=== PATIENT | male | born 1945 | race Caucasian/White ===

== ENCOUNTER 2019-03-14 04:41 | Inpatient (IN) ==
[2019-03-08 15:54] LABS: Appearance,Urine CLEAR; Bacteria,Urine 0 /hpf (0); Bilirubin,Urine NEG (NEG); Color,Urine YELLOW; Glucose,Urine (UA) NEGATIVE (NEG); Leukocyte Esterase,Urine NEG /uL (NEG); Mucus,Urine FEW /hpf (0); Protein,Urine NEG (NEG); Specific Gravity,Urine 1.013 (1.000-1.035); Urine Blood 0.03 mg/dL (<0.03); Urine RBC < 1 /hpf (0-1); Urine Squamous Epithelial Cell 0 /hpf (0-4); Urine WBC 2 /hpf (0-4); Urobilinogen,Urine NEG (NEG)
[2019-03-08 16:26] LABS: Basophils # (Auto) 0 K/mcL (0.0-0.3); Basophils % (Auto) 0.2 % (0.0-2.0); Eosinophils # (Auto) 0.4 K/mcL (0.0-0.7); Granulocytes % (Auto) 49.3 % (38.0-78.0); Lymphocytes # (Auto) 3.7 K/mcL (1.5-4.8); Lymphocytes % (Auto) 34.2 % (15.5-49.0); Mean Cell Volume 88.5 fL (80.0-100.0); Mean Corpuscular HGB Conc 31.6 g/dL (31.0-36.0); Monocytes # (Auto) 1.3 K/mcL (0.1-0.9); Monocytes % (Auto) 12.3 % (1.0-12.0); Platelet Count 237 K/mcL (140-440); RBC 4.96 M/mcL (4.50-5.90); Red Cell Distribution Width 19.3 % (11.5-14.5)
[2019-03-08 16:37] LABS: Blood Urea Nitrogen 15 mg/dl (8-23)
[2019-03-08 17:22] LABS: Estimated Average Glucose(eAG) 137 mg/dL; Hemoglobin A1C 6.4 % HGB (4.0-6.0)
[2019-03-14] MEDS ORDERED: GENTAMICIN SULFATE 800 MG/20 ML VIAL IR ONE (06:43)
[2019-03-14] MEDS ORDERED: ceFAZolin 2 GM in DEXTROSE 5% IN WATER 50 ML IV SCH (07:00)
[2019-03-14] MEDS ORDERED: oxyCODONE 10 MG TAB.ER.12H PO SCH (07:00)
[2019-03-14] MEDS ORDERED: PREGABALIN 150 MG CAPSULE PO SCH (07:00)
[2019-03-14] MEDS ORDERED: ACETAMINOPHEN 500 MG TABLET PO SCH (07:00)
[2019-03-14] MEDS ORDERED: 0.9 % SODIUM CHLORIDE 9 ML, KETOROLAC 30 MG, ROPIVACAINE HCL/PF 49.5 ML, EPINEPHrine 0.... IJ SCH (07:00)
[2019-03-14] MEDS ORDERED: CELECOXIB 200 MG CAPSULE PO SCH (07:00)
--- NOTE | 2019-03-14 08:46 | XRay Report ---
CLINICAL INFORMATION: right total hip arthroplasty COMPARISON: None. FINDINGS: Single AP view of the pelvis in the OR shows right femoral stem template and right prosthetic acetabulum are anatomically aligned. Moderate degeneration on the left hip. IMPRESSION: Anatomic alignment femoral stem template and prosthetic right acetabulum Interpreted and Authenticated by: Seb Jacobson 03/14/19
[2019-03-14] MEDS ORDERED: HYDROmorphone 2 MG/ML VIAL IV PRN (09:09)
[2019-03-14] MEDS ORDERED: TRANEXAMIC ACID 1,000 MG/10 ML VIAL IV ONE (09:09)
[2019-03-14] MEDS ORDERED: BENZOCAINE/MENTHOL 1 LOZENGE PO PRN ×2 (09:09→09:16)
[2019-03-14] MEDS ORDERED: MAGNESIUM HYDROXIDE 30 ML ORAL.SUSP PO PRN (09:09)
[2019-03-14] MEDS ORDERED: POLYETHYLENE GLYCOL 3350 17 GM PACKET PO PRN (09:09)
[2019-03-14] MEDS ORDERED: TEMAZEPAM 15 MG CAPSULE PO PRN (09:09)
[2019-03-14] MEDS ORDERED: ONDANSETRON 4 MG/2 ML VIAL IV PRN ×2 (09:09→09:16)
[2019-03-14] MEDS ORDERED: BISACODYL 10 MG SUPP.RECT PR PRN (09:09)
[2019-03-14] MEDS ORDERED: ACETAMINOPHEN 325 MG TABLET PO PRN (09:09)
[2019-03-14] MEDS ORDERED: FLEETS ADULT ENEMA PR PRN (09:09)
--- NOTE | 2019-03-14 09:09 | Brief Operative Note ---
Date of procedure: 03/14/19 Pre-op diagnosis: Right hip djd severe Post-op diagnosis: same Procedure: Right LALA Grafts/Implants: Yes Anesthesia: GETA Complications: none Surgeon: Landon Michelle Educational Aide: Jerry Saenz Estimated blood loss (cc): 300 Specimens Removed/Pathology: none sent Condition: stable Disposition: PACU
[2019-03-14] MEDS ORDERED: HYDROcodone/APAP 10/325MG TABLET PO PRN (09:11)
[2019-03-14] MEDS ORDERED: MELATONIN 3 MG TABLET PO PRN (09:11)
[2019-03-14] MEDS ORDERED: DEXTROSE 5%-1/2NS 1,000 ML IV SCH (09:15)
[2019-03-14] MEDS ORDERED: TESTOSTERONE CYPIONATE 200 MG/ML IM SCH (09:15)
[2019-03-14] MEDS ORDERED: PROMETHAZINE 25 MG/ML VIAL IM PRN (09:16)
[2019-03-14] MEDS ORDERED: IPRATROPIUM/ALBUTEROL 3 ML AMPUL.NEB NEB PRN (09:16)
[2019-03-14] MEDS ORDERED: FLUMAZENIL 0.1 MG/ML ML IV PRN (09:16)
[2019-03-14] MEDS ORDERED: NALOXONE HCL 0.4 MG/ML VIAL IV PRN (09:16)
[2019-03-14] MEDS ORDERED: ACETAMINOPHEN 1,000 MG/100 ML BOTTLE IV ONE (09:16)
[2019-03-14] MEDS ORDERED: PROMETHAZINE 25 MG/ML VIAL IV PRN (09:16)
[2019-03-14] MEDS ORDERED: MEPERIDINE 50 MG/ML INJECTION IM PRN (09:16)
[2019-03-14] MEDS ORDERED: MEPERIDINE 25 MG/ML SYRINGE IV PRN (09:16)
[2019-03-14] MEDS ORDERED: METHOCARBAMOL 1,000 MG/10 ML VIAL IV PRN (09:16)
[2019-03-14] MEDS ORDERED: LACTATED RINGERS 250 ML IV PRN (09:16)
[2019-03-14] MEDS ORDERED: LACTATED RINGERS 1,000 ML IV SCH (09:30)
--- NOTE | 2019-03-14 09:44 | XRay Report ---
CLINICAL INFORMATION: Post-op Total Hip COMPARISON: None. FINDINGS: Right total hip prosthesis is in anatomic alignment. Moderate degenerative changes noted in the left hip. No osseous abnormality. Soft tissues normal. IMPRESSION: Right hip prosthesis in anatomic alignment Interpreted and Authenticated by: Seb Jacobson 03/14/19
--- NOTE | 2019-03-14 09:53 | Operative Note ---
DATE OF OPERATION: 03/14/2019 PREOPERATIVE DIAGNOSIS: Right hip degenerative arthritis, severe. POSTOPERATIVE DIAGNOSIS: Right hip degenerative arthritis, severe. PROCEDURE: Right total hip arthroplasty. SURGEON: Landon Michelle M.D. DOOR TO DOOR SELLING DISTRIBUTOR: Jerry Saenz PA-C. ANESTHESIA: General LMA anesthesia. COMPLICATIONS: None. DESCRIPTION OF PROCEDURE: The patient was brought to the operating room and put to sleep with general LMA anesthesia. Once asleep, the patient had the right hip sterilely prepped and draped. A timeout was performed. The patient then had a superior approach performed. Once exposed, we dislocated the hip and made the neck cut at 32 mm from the center of hip rotation. Once done, we then removed the ball. We removed the labrum and reamed up to the size 54. A 54 cup in 20 degrees of anteversion and 40 degrees of inclination was placed with a 35 mm screw. A hooded liner was placed inferiorly. We then prepared the femur. The femur was then broached up to a size 4. This seemed to fit very nicely, equal leg lengths with a 5+ neck length. Once done, we then tapped into place a size 4 cementless stem with a +5 ceramic 36 mm head and neck, which was reduced very stable up to 80 degrees of rotation with the hip flexed. The patient tolerated this well. We irrigated. We took the hip through range of motion. Leg lengths equal. We irrigated, closed the capsule with #2 Ethibond. The fascial layer was closed with #1 Stratafix and adhesive closure on the skin. Sterile bandage applied. RBH:enrique Job ID: [id number] Doc ID: [id number] Landon Michelle MD
[2019-03-14] MEDS: fentaNYL 100 MCG/2 ML VIAL IV PRN ×4 (10:05→10:19)
[2019-03-14] MEDS: 0.45 % SODIUM CHLORIDE 1,000 ML IV SCH ×2 (10:39→20:18)
[2019-03-14] MEDS: KETOROLAC 15 MG/ML VIAL IV PRN ×2 (10:57→17:39)
[2019-03-14] MEDS: 0.9 % SODIUM CHLORIDE 10 ML SYRINGE IV SCH ×3 (13:14→23:53)
[2019-03-14] MEDS: HYDROcodone/APAP 10/325MG TABLET PO PRN (13:58)
[2019-03-14] MEDS: ceFAZolin 1 GM VIAL IV SCH ×2 (14:49→23:52)
[2019-03-14] MEDS: METHADONE 5 MG TABLET PO SCH ×2 (14:49→20:13)
[2019-03-14] MEDS: metFORMIN 500 MG TAB.XL.24H PO SCH (17:39)
[2019-03-14] MEDS: BACLOFEN 10 MG TABLET PO SCH (20:12)
[2019-03-14] MEDS: APIXABAN 5 MG TABLET PO SCH (20:12)
[2019-03-14] MEDS: PREGABALIN 150 MG CAPSULE PO SCH (20:13)
[2019-03-14] MEDS: DOCUSATE SODIUM 100 MG CAPSULE PO SCH (20:13)
[2019-03-14] MEDS: cloNIDine HCL 0.1 MG TABLET PO SCH (20:13)
[2019-03-14] MEDS: SENNOSIDES 1 TABLET PO SCH (20:16)
[2019-03-14] MEDS: SAW PALMETTO 160 MG PO SCH (20:16)
[2019-03-14] MEDS: Lubiprostone [Amitiza] 24 mcg Cap PO SCH (20:16)
[2019-03-14] MEDS ORDERED: ASPIRIN 325 MG ENTERIC COATED TABLET PO SCH (21:00)
[2019-03-15] MEDS: 0.9 % SODIUM CHLORIDE 10 ML SYRINGE IV SCH ×3 (05:25→21:16)
[2019-03-15] MEDS: HYDROcodone/APAP 10/325MG TABLET PO PRN ×3 (05:32→23:55)
[2019-03-15] MEDS ORDERED: LEVOTHYROXINE 50 MCG TABLET PO SCH (07:30)
--- NOTE | 2019-03-15 07:39 | Orthopedic Progress Note ---
Subjective Patient information: Note initiated : 03/15/19 at 7:38 am Service Date, if different from initiated Date: [] Patient: Siddharth Painter 73 y/o M admitted on 03/14/19 for Right Total Hip Arthroplasty. Chief Complaint: [Pt is stable this morning on post operative day 1 without any significant concerns or complaints. Patients vital signs have remained stable. Patients dressing is dry and is grossly intact from a neurovascular and motor standpoint. Patients 10 point ROS is otherwise negative. ] Objective Vital signs: Vital Signs Temp Pulse Resp BP BP Pulse Ox 03/15/19 04:05 97.5 F 62 16 117/47 94 03/14/19 23:57 95 03/14/19 23:49 98.3 F 69 16 126/51 93 03/14/19 19:12 98.8 F 71 16 129/57 90 03/14/19 16:53 91 03/14/19 13:51 95 03/14/19 13:30 63 127/60 89 L 03/14/19 13:15 92 03/14/19 12:33 56 L 123/62 97 03/14/19 12:02 56 L 10 L 128/59 91 03/14/19 11:30 55 L 8 L 120/61 98 03/14/19 11:29 86 L 03/14/19 11:17 96 03/14/19 11:16 95 03/14/19 11:15 53 L 122/63 94 03/14/19 11:08 92 03/14/19 11:01 58 L 12 125/57 94 03/14/19 11:00 95 03/14/19 10:45 59 L 126/63 94 03/14/19 10:30 97.6 F 58 L 12 97/47 94 03/14/19 10:25 98.1 F 61 13 129/49 93 03/14/19 10:10 97.5 F 59 L 15 136/50 93 03/14/19 09:55 97.5 F 77 12 166/64 93 03/14/19 09:40 97.2 F 75 12 157/72 93 03/14/19 09:25 97.1 F 16 L 11 L 151/65 94 03/14/19 09:20 75 11 L 138/54 92 03/14/19 09:15 74 11 L 134/54 94 03/14/19 09:10 97.0 F 80 12 154/67 94 Intake and Output 03/14/19 03/15/19 03/15/19 21:59 05:59 13:59 Intake Total 1907 250 Output Total 875 1300 Balance 1032 -1050 Intake: IV 967 Sodium Chloride 0.45% 1,000 ml 967 @ 100 mls/hr IV .Q10H TIANA Rx#: [id number] Oral 940 250 Output: Void Amount 875 1300 Other: Meal Dinner Percent of Meal Consumed 100% Urine Appearance Clear Clear Urine Color Dark Yellow Bright Yellow Urine Odor Strong Weight 253 lb Intake & Output: Intake & Output 03/14/19 03/15/19 03/15/19 21:59 05:59 13:59 Intake Total 1907 250 Output Total 875 1300 Balance 1032 -1050 Weight 253 lb Intake: IV 967 Sodium Chloride 0.45% 1,000 ml 967 @ 100 mls/hr IV .Q10H TIANA Rx#: [id number] Oral 940 250 Output: Void Amount 875 1300 Other: Meal Dinner Percent of Meal Consumed 100% Urine Appearance Clear Clear Urine Color Dark Yellow Bright Yellow Urine Odor Strong Incision: Yes healing Incision clean and dry: Yes Dressing: Yes clean Weight bearing status: full Neurological exam IM: Yes motor sensory intact, Yes neurovascular intact Extremities exam IM: Yes Foot pink and warm, Yes neurovascular intact - Labs CBC & BMP: 03/15/19 04:12 03/08/19 14:07 Labs: Orthopedic Labs 03/08/19 14:07 PT 12.8 INR 1.0 APTT 34 03/15/19 03/08/19 04:12 14:07 Hgb 13.9 Hct 35.2 L 43.9 Assessment and Plan (1) Hx of total hip arthroplasty The patient has been educated regarding dressing care, Physical Therapy recomme ndations, home exercises, restrictions, and follow up appointments. The patient has had all necessary DME prescribed. The patient has remained relatively stable during their hospital course. Status: Acute
[2019-03-15] MEDS: OMEPRAZOLE 20 MG CAPSULE PO SCH (07:42)
[2019-03-15] MEDS: KETOROLAC 15 MG/ML VIAL IV PRN ×2 (07:42→13:58)
[2019-03-15] MEDS: metFORMIN 500 MG TAB.XL.24H PO SCH ×2 (07:42→17:03)
--- NOTE | 2019-03-15 07:42 | Discharge Summary ---
Ortho Discharge - LALA - Patient Instructions Diet: Regular Diet Activity: activity as tolerated, weight bearing as tolerated Total Hip Protocol: Follow activity instructions as provided by Physical Therapy. Dressing Care: May shower in 2 days Patient Education: Total Hip Replacement (DC) - Problem Maintenance (1) Hx of total hip arthroplasty Status: Acute - Follow Up Plan Follow Up Appointments: Jerry Saenz PA-C [Physician Team Leader Surgery] - 03/29/19 10:10 am Disposition: Home, Self-Care Prognosis: Good Rehab Potential: Good I certify that the patient requires SNF services: No Overall status at discharge: patient is progressing back to baseline - Orders For Discharge Prescriptions: Docusate Sodium [Colace] 100 mg PO BID #60 cap HYDROcodone/APAP 10/325MG [[place] 10-325Mg] 1 - 2 tab PO Q4HP PRN #75 tab PRN Reason: Pain Level 3-6
[2019-03-15] MEDS: LEVOTHYROXINE 88 MCG TABLET PO SCH (08:04)
[2019-03-15] MEDS: METHADONE 5 MG TABLET PO SCH ×3 (08:54→21:14)
[2019-03-15] MEDS: VITAMIN B COMPLEX 1 CAPSULE PO SCH (08:54)
[2019-03-15] MEDS: OLMESARTAN MEDOXOMIL 20 MG TABLET PO SCH (08:54)
[2019-03-15] MEDS: PREGABALIN 150 MG CAPSULE PO SCH ×2 (08:54→21:14)
[2019-03-15] MEDS: cloNIDine HCL 0.1 MG TABLET PO SCH ×2 (08:54→23:52)
[2019-03-15] MEDS: FISH OIL 1,000 MG CAPSULE PO SCH (08:54)
[2019-03-15] MEDS: amLODIPine 10 MG TABLET PO SCH (08:54)
[2019-03-15] MEDS: VITAMIN D3 5,000 UNIT CAPSULE PO SCH (08:54)
[2019-03-15] MEDS: DOCUSATE SODIUM 100 MG CAPSULE PO SCH ×2 (08:55→21:14)
[2019-03-15] MEDS: DULoxetine 30 MG CAPSULE PO SCH (08:55)
[2019-03-15] MEDS: APIXABAN 5 MG TABLET PO SCH ×2 (08:55→21:14)
[2019-03-15] MEDS: MAGNESIUM OXIDE 400 MG TABLET PO SCH (08:55)
[2019-03-15] MEDS: SAW PALMETTO 160 MG PO SCH ×2 (09:09→21:16)
[2019-03-15] MEDS: Lubiprostone [Amitiza] 24 mcg Cap PO SCH ×2 (09:09→21:16)
[2019-03-15] MEDS ORDERED: DEXAMETHASONE 10 MG/ML VIAL IV ONE (12:59)
[2019-03-15] MEDS ORDERED: LIDOCAINE HCL/PF 100 MG/5 ML SYRINGE IV ONE (12:59)
[2019-03-15] MEDS ORDERED: PROPOFOL 200 MG/20 ML VIAL IV ONE (12:59)
[2019-03-15] MEDS ORDERED: TRANEXAMIC ACID 1,000 MG/10 ML VIAL IV ONE (12:59)
[2019-03-15] MEDS ORDERED: SUCCINYLCHOLINE 20 MG/ML ML IV ONE (12:59)
[2019-03-15] MEDS ORDERED: GLYCOPYRROLATE 0.2 MG/ML VIAL IV ONE (12:59)
[2019-03-15] MEDS ORDERED: PHENYLEPHRINE 10 MG/ML VIAL IV ONE (12:59)
[2019-03-15] MEDS ORDERED: ONDANSETRON 4 MG/2 ML VIAL IV ONE (12:59)
[2019-03-15] MEDS: BACLOFEN 10 MG TABLET PO SCH (21:14)
[2019-03-15] MEDS: SENNOSIDES 1 TABLET PO SCH (21:15)
[2019-03-16] MEDS: 0.9 % SODIUM CHLORIDE 10 ML SYRINGE IV SCH (05:15)
[2019-03-16] MEDS: HYDROcodone/APAP 10/325MG TABLET PO PRN (07:08)
[2019-03-16] MEDS: LEVOTHYROXINE 88 MCG TABLET PO SCH (07:40)
[2019-03-16] MEDS: OMEPRAZOLE 20 MG CAPSULE PO SCH (07:40)
[2019-03-16] MEDS: metFORMIN 500 MG TAB.XL.24H PO SCH (07:46)
[2019-03-16] MEDS: VITAMIN B COMPLEX 1 CAPSULE PO SCH (08:27)
[2019-03-16] MEDS: DOCUSATE SODIUM 100 MG CAPSULE PO SCH (08:28)
[2019-03-16] MEDS: VITAMIN D3 5,000 UNIT CAPSULE PO SCH (08:28)
[2019-03-16] MEDS: METHADONE 5 MG TABLET PO SCH ×2 (08:29→14:52)
[2019-03-16] MEDS: OLMESARTAN MEDOXOMIL 20 MG TABLET PO SCH (08:32)
[2019-03-16] MEDS: cloNIDine HCL 0.1 MG TABLET PO SCH (08:33)
[2019-03-16] MEDS: MAGNESIUM OXIDE 400 MG TABLET PO SCH (08:33)
[2019-03-16] MEDS: FISH OIL 1,000 MG CAPSULE PO SCH (08:34)
[2019-03-16] MEDS: APIXABAN 5 MG TABLET PO SCH (08:34)
[2019-03-16] MEDS: DULoxetine 30 MG CAPSULE PO SCH (08:35)
[2019-03-16] MEDS: PREGABALIN 150 MG CAPSULE PO SCH (08:37)
[2019-03-16] MEDS: amLODIPine 10 MG TABLET PO SCH (08:37)
[2019-03-16] MEDS: KETOROLAC 15 MG/ML VIAL IV PRN (08:59)
[2019-03-16] MEDS: Lubiprostone [Amitiza] 24 mcg Cap PO SCH (09:29)
[2019-03-16] MEDS: SAW PALMETTO 160 MG PO SCH (09:29)
== END 2019-03-16 16:15 | DRG 470 ==
LOC: MEDSUR 04:41
PROVIDERS: ADMIT Orthopaedic Surgery; ATTEND Orthopaedic Surgery

== ENCOUNTER 2020-05-18 00:07 | Inpatient (IN) ==
[2020-05-18] MEDS ORDERED: HYDROmorphone 0.5 MG/0.5 ML SYRINGE IV PRN (00:51)
[2020-05-18 01:17] LABS: Basophils # (Auto) 0.04 K/mcL (0.00-0.30); Basophils % (Auto) 0.3 % (0.0-2.0); Eosinophils # (Auto) 0.31 K/mcL (0.00-0.70); Eosinophils % (Auto) 2.1 % (0.0-7.0); Granulocytes % (Auto) 72.1 % (38.0-78.0); Hematocrit 37.9 % (40.1-51.0); Hemoglobin 12.1 g/dL (13.7-17.5); Lymphocytes # (Auto) 1.81 K/mcL (1.50-4.80); Lymphocytes % (Auto) 12.3 % (15.5-49.0); Mean Cell Volume 76.6 fL (80.0-100.0); Mean Corpuscular HGB Conc 31.9 g/dL (31.0-36.0); Mean Platelet Volume 10.7 fL (7.4-10.4); Monocytes # (Auto) 1.95 K/mcL (0.10-0.90); Monocytes % (Auto) 13.2 % (1.0-12.0); Platelet Count 192 K/mcL (140-440); RBC 4.95 M/mcL (4.63-6.08); Red Cell Distribution Width 19.6 % (11.5-14.5); WBC 14.7 K/mcL (4.50-11.00)
[2020-05-18 01:56] LABS: ALT/SGPT 29 U/l (0-40); AST/SGOT 47 U/l (0-37); Albumin 3.5 gm/dL (3.2-5.2); Albumin/Globulin Ratio 0.9 (1.0-2.3); Alkaline Phosphatase 93 U/L (39-117); Bilirubin,Total 0.8 mg/dL (0.0-1.0); Blood Urea Nitrogen 37 mg/dl (8-23); Calcium 9.4 mg/dl (8.6-10.4); Carbon Dioxide 20 mmol/L (22-30); Chloride 102 mmol/L (96-108); Globulin 3.7 gm/dL (2.2-3.7); Glomerular Filtration Rate 34; Glucose 111 mg/dL (70-105)
[2020-05-18] MEDS ORDERED: CALCIUM CHLORIDE 1,000 MG/10 ML SYRINGE IV ONE ×2 (02:04→06:42)
[2020-05-18] MEDS ORDERED: FUROSEMIDE 40 MG/4 ML VIAL IV ONE ×2 (02:05→06:42)
[2020-05-18] MEDS ORDERED: SODIUM POLYSTYRENE SULFONATE 15 GM/60 ML SUSPENSION ONE (02:06)
[2020-05-18] MEDS ORDERED: ONDANSETRON 4 MG/2 ML VIAL ONE (02:23)
--- NOTE | 2020-05-18 06:40 | Cat Scan Report ---
INDICATION: weakness COMPARISON: Most recent previous MRI scan dated 10/23/2014. TECHNIQUE: Axial noncontrast-enhanced images through the brain. Sagittally and coronally reformatted images. FINDINGS: Examination was initially interpreted by [facility] Cerebral hemispheres:No intra-axial hemorrhage. Encephalomalacia in the right parietal lobe and right frontal lobe consistent with nonacute infarction. No new attenuation abnormality or localized mass effect. No midline shift. There is right lateral ventricular enlargement which is an ex vacuo effect. Brainstem and cerebellum:No intra-axial abnormality Extra-axial:No acute hemorrhage. No subdural or epidural hematoma. No subarachnoid hemorrhage. Basilar cisterns are normal Calvarial:No calvarial fracture. No lytic lesion Temporal bones are negative. No destructive lesions Soft tissue:Orbits and visualized facial soft tissues are grossly normal. IMPRESSION: 1. No acute intracranial hemorrhage. No acute abnormality 2. 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 Interpreted and Authenticated by: Seb Younger 05/18/20
[2020-05-18] MEDS ORDERED: 0.9 % SODIUM CHLORIDE 1,000 ML IV ONE (06:42)
[2020-05-18] MEDS ORDERED: ONDANSETRON 4 MG/2 ML VIAL IV ONE (06:42)
[2020-05-18] MEDS ORDERED: SODIUM POLYSTYRENE SULFONATE 15 GM/60 ML SUSPENSION PO ONE (06:42)
--- NOTE | 2020-05-18 06:52 | XRay Report ---
INDICATION: weakness TECHNIQUE: AP portable semiupright chest x-ray COMPARISON: Previous chest x-rays dated 07/06/2019 and 03/08/2019 FINDINGS: Lungs:Lungs are negative. No focal pulmonary parenchymal infiltrate or mass Heart, vascular:No significant cardiomegaly. Pulmonary vascularity is normal. No pulmonary edema or pulmonary congestion Mediastinum, alina:No mediastinal widening. No hilar mass Pleura:No pleural fluid. No pleural-based mass or calcification Skeletal:No acute right rib fracture or fractures. No acute abnormality IMPRESSION: Negative AP chest x-ray Interpreted and Authenticated by: Seb Younger 05/18/20
--- NOTE | 2020-05-18 07:10 | Cat Scan Report ---
INDICATION: abd pain COMPARISON: Abdominal CT scan dated 03/30/2020 TECHNIQUE: Axial images were obtained through the abdomen and pelvis. Sagittally and coronally reformatted images. FINDINGS: The examination was initially interpreted by [facility] Lung bases:No pulmonary parenchymal density. No calcified or noncalcified nodule. No pleural or pericardial effusion Liver: 8 mm low density lesion high in the right lobe of the liver. This is unchanged and nonspecific. Liver is otherwise negative to the limits of noncontrast enhanced examination. Liver contour is smooth without evidence for cirrhosis Gallbladder, bilary:No calcified gallstones. No gallbladder wall thickening. No pericholecystic fluid. No dilated bile ducts Spleen:No splenomegaly Pancreas:No pancreatic mass. No peripancreatic abnormality Adrenal glands:Negative Kidneys, ureters, bladder:No obstructing or nonobstructing renal calculi. No hydronephrosis. No renal mass No hydroureter. No ureteral stone No bladder calculus Gastrointestinal:No significant diverticulosis or evidence for diverticulitis. No detectable colonic mass No mechanical small bowel obstruction. No small bowel dilatation. Appendix: The appendix is normal Vascular:There is calcification of the abdominal aorta. Common iliac arteries are calcified. There is calcified plaque at the origins of the celiac trunk and superior mesenteric artery. Lymphatic:No retroperitoneal adenopathy. No significant mesenteric adenopathy. Mesentery, peritoneum:Trace perihepatic fluid consistent with ascites. This is decreased since 03/30/2020. No intra-abdominal abscess. There is thickening of the fascial planes in the retroperitoneum. No well-defined discrete mass. Reproductive:No significant prostatic enlargement Musculoskeletal:No lumbar compression fractures. No lytic lesions. Sacrum, pelvis, hips are negative. No anterior abdominal wall or inguinal hernia IMPRESSION: 1. Trace ascites, decreased since 03/30/2020 2. Atherosclerotic calcification. No abdominal aortic aneurysm 3. Nonspecific thickening of fascial planes in the retroperitoneum. No focal intra-abdominal abscess. The exam was performed using radiation dose optimization techniques including, but not limited to, automated exposure control, adjustment of the mA and/or kV according to patient size and use of iterative reconstruction technique. Interpreted and Authenticated by: Seb Younger 05/18/20
[2020-05-18] MEDS ORDERED: LACTULOSE 20 GM/30 ML ORAL.SOL PO PRN (07:56)
[2020-05-18] MEDS ORDERED: SENNOSIDES 1 TABLET PO PRN (07:56)
[2020-05-18] MEDS ORDERED: ONDANSETRON 4 MG/2 ML VIAL IV PRN (07:56)
[2020-05-18] MEDS ORDERED: ONDANSETRON 4 MG ODT TABLET SL PRN (08:00)
[2020-05-18] MEDS ORDERED: MELATONIN 3 MG TABLET PO PRN (08:00)
[2020-05-18] MEDS ORDERED: ACETAMINOPHEN 325 MG TABLET PO PRN (08:00)
[2020-05-18] MEDS ORDERED: OMEPRAZOLE 20 MG CAPSULE PO PRN (08:05)
[2020-05-18] MEDS ORDERED: DOCUSATE SODIUM 100 MG CAPSULE PO SCH (09:00)
[2020-05-18 09:54] LABS: Chloride 105 mmol/L (96-108)
[2020-05-18 10:04] LABS: Basophils # (Auto) 0.04 K/mcL (0.00-0.30); Basophils % (Auto) 0.3 % (0.0-2.0); Eosinophils # (Auto) 0.58 K/mcL (0.00-0.70); Granulocytes % (Auto) 64.1 % (38.0-78.0); Hematocrit 39.3 % (40.1-51.0); Hemoglobin 12.1 g/dL (13.7-17.5); Lymphocytes # (Auto) 2.82 K/mcL (1.50-4.80); Lymphocytes % (Auto) 19.3 % (15.5-49.0); Mean Cell Volume 78.6 fL (80.0-100.0); Mean Corpuscular HGB Conc 30.8 g/dL (31.0-36.0); Mean Platelet Volume 10.7 fL (7.4-10.4); Monocytes % (Auto) 12.3 % (1.0-12.0); Platelet Count 193 K/mcL (140-440); Red Cell Distribution Width 20.1 % (11.5-14.5); WBC 14.6 K/mcL (4.50-11.00)
[2020-05-18 10:09] LABS: ALT/SGPT 29 U/l (0-40); AST/SGOT 49 U/l (0-37); Albumin 3.4 gm/dL (3.2-5.2); Albumin/Globulin Ratio 0.9 (1.0-2.3); Alkaline Phosphatase 94 U/L (39-117); Bilirubin,Total 0.8 mg/dL (0.0-1.0); Blood Urea Nitrogen 35 mg/dl (8-23); Carbon Dioxide 17 mmol/L (22-30); Globulin 3.7 gm/dL (2.2-3.7); Glomerular Filtration Rate 45; Glucose 120 mg/dL (70-105)
[2020-05-18] MEDS: 0.9 % SODIUM CHLORIDE 1,000 ML IV SCH (10:25)
[2020-05-18] MEDS: oxyCODONE HCL 5 MG TABLET PO PRN ×2 (10:26→18:32)
[2020-05-18] MEDS: MULTIVIT,THER IRON,CA,FA & MIN 1 TABLET PO SCH (10:26)
[2020-05-18] MEDS: RIFAXIMIN 550 MG TABLET PO SCH ×2 (10:26→20:56)
[2020-05-18] MEDS: THIAMINE 100 MG TABLET PO SCH (10:26)
[2020-05-18] MEDS: APIXABAN 5 MG TABLET PO SCH ×2 (10:26→20:56)
[2020-05-18] MEDS: CYANOCOBALAMIN (VITAMIN B-12) 500 MCG TABLET PO SCH ×2 (10:26→20:56)
[2020-05-18] MEDS: sitaGLIPtin 50 MG TABLET PO SCH (10:26)
[2020-05-18] MEDS: MAGNESIUM OXIDE 400 MG TABLET PO SCH (10:26)
[2020-05-18] MEDS: cloNIDine HCL 0.1 MG TABLET PO SCH ×2 (10:26→20:55)
[2020-05-18] MEDS: PREGABALIN 150 MG CAPSULE PO SCH ×2 (10:26→20:56)
[2020-05-18] MEDS: FINASTERIDE 5 MG TABLET PO SCH (10:27)
[2020-05-18] MEDS: DOCUSATE SODIUM 100 MG CAPSULE PO SCH (10:27)
--- NOTE | 2020-05-18 11:36 | Emergency Department Note ---
Weakness HPI General Chief complaint: Weakness Stated complaint: weakness Time Seen by Provider: 05/18/20 00:17 Source: patient, family and EMS Mode of arrival: EMS Limitations: no limitations History of Present Illness HPI Narrative: 74-year-old male is brought in by EMS for weakness all day. He was recently seen by gastroenterology, Tania Glover nurse practitioner.He was being worked up for liver failure and was found to have a significantly elevated ammonia level and so was started on lactulose. He took 2 doses and was essentially having diarrhea all day with worsening condition. He got so weak that he could not get out of bed- Indeed he had been getting weaker for the last 5 days, Likely with increased ammonia levels but today's episode was an acute decline. He had trouble thinking straight and was very slow to speak. No fever nausea vomiting or other illness. He is able to urinate. On review of the chart it does look like he has had a recent pulmonary function tests and he is requiring oxygen here but has not in the past- EMS had him on 3 L nasal cannula. He is a current smoker. Temperature here is 99.3 elevated but not a true fever. His notes that he is on CPAP for sleep apnea at home But that this is not connected to oxygen He has a living will but he does not want artificial life prolonged but he is not DNR Related Data Home Medications Medication Instructions Recorded Confirmed clonidine HCl 0.1 mg PO BID 03/08/19 05/18/20 magnesium oxide 400 mg PO DAILY 03/08/19 05/18/20 omega-3 fatty acids-fish oil 1,000 mg PO DAILY 03/08/19 05/18/20 saw palmetto 160 mg PO BID 03/08/19 05/18/20 vitamin B complex 1 cap PO DAILY 03/08/19 05/18/20 levothyroxine 88 mcg PO QAMAC 03/15/19 05/18/20 lidocaine 5 % topical patch 3 patch TOPICAL QDAY each 07/25/19 05/18/20 testosterone cypionate 200 mg/mL 100 mg IM Q14D ml 07/25/19 05/18/20 intramuscular oil mirtazapine 15 mg tablet 15 mg PO QHS 01/27/20 05/18/20 pregabalin 150 mg capsule 150 mg PO BID 01/27/20 05/18/20 rosuvastatin 10 mg tablet 10 mg PO QDAY 01/27/20 05/18/20 apixaban 5 mg tablet 5 mg PO BID 05/02/20 05/18/20 amlodipine 5 mg-benazepril 40 mg 1 cap PO QDAY 05/04/20 05/18/20 capsule docusate sodium 100 mg capsule 100 mg PO QDAY 05/04/20 05/18/20 furosemide 40 mg tablet 40 mg PO QDAY 05/04/20 05/18/20 metformin 500 mg tablet,extended 500 mg PO BID tab 05/04/20 05/18/20 release 24 hr omeprazole 20 mg capsule,delayed 20 mg PO QDAY PRN 05/04/20 05/18/20 release oxycodone 15 mg tablet 15 mg PO Q6H PRN tab 05/04/20 05/18/20 spironolactone 100 mg tablet 100 mg PO QDAY 05/04/20 05/18/20 Lactulose 10 mg PO DAILY 05/18/20 05/18/20 Previous Rx's Medication Instructions Recorded tamsulosin 0.4 mg capsule 0.4 mg PO QHS #90 cap 04/16/20 finasteride 5 mg tablet 5 mg PO QDAY #30 tab 04/19/20 Allergies Allergy/AdvReac Type Severity Reaction Status Date / Time Diclofenac [From Flector] Allergy Unknown Unknown Verified 05/18/20 00:57 fentanyl AdvReac Intermediate Blister Verified 05/18/20 00:57 Review of Systems All systems ED: reviewed and negative except as stated. [facility] Medical/Surgical/Family History All Active Problems Acute hepatic encephalopathy (Acute) Acute renal failure (Acute) Acute hyperkalemia (Acute) Fatty liver (Acute) Stroke (Chronic ~2005) Stomach ulcer (Chronic ~1965) Liver disease (Chronic ~2019) Joint pain (Chronic ~2015) Type 2 diabetes mellitus (Chronic ~2015) Daytime sleepiness (Chronic ~2018) Bleeding tendency (Chronic ~2009) Arthritis (Chronic ~2009) Acid reflux (Chronic ~1963) Overactive bladder (Chronic) OZZIE on CPAP (Chronic) Tobacco dependence (Chronic) Hemiparesis affecting left side as late effect of stroke (Chronic) Repeated falls (Chronic) Spinal stenosis (Chronic) [employer] current use of opiate analgesic (Chronic) Chronic pain disorder (Chronic) Opioid dependence (Chronic) Localized edema (Chronic) Hematuria (Chronic) Drug induced constipation (Chronic) Depressive disorder (Chronic) History of colon cancer, stage III (Chronic) Atopic dermatitis and related condition (Chronic) BMI 36.0-36.9,adult (Chronic) Type 2 diabetes mellitus with diabetic polyneuropathy (Chronic) Premature atrial contractions (Chronic) Atopic dermatitis (Chronic) Sleep apnea (Chronic) Chronic diastolic heart failure (Chronic) Sternal pain (Chronic) Chest pain (Chronic) Fatigue (Chronic) Rib pain (Chronic) Sciatic nerve pain (Chronic) Disc degeneration, lumbar (Chronic) Hx of total hip arthroplasty (Chronic) Long-term current use of steroids (Chronic) Back Pain (Chronic) Muscle pain (Chronic) Osteoarthritis (Chronic) Iron deficiency (Chronic) Secondary multiple arthritis (Chronic) Dizziness and giddiness (Chronic) Other fatigue (Chronic) Colon cancer (Chronic) Hyperhidrosis (Chronic) PMR (polymyalgia rheumatica) (Chronic) Androgen deficiency (Chronic) Embolic stroke (Chronic) Depression (Chronic) Anxiety (Chronic) Memory deficits (Chronic) Hyperlipidemia (Chronic) Hypertension (Chronic) Medical History Acid reflux (Chronic ~1963) Androgen deficiency (Chronic) Anxiety (Chronic) Arthritis (Chronic ~2009) Atopic dermatitis (Chronic) Atopic dermatitis and related condition (Chronic) Back Pain (Chronic) Bleeding tendency (Chronic ~2009) BMI 36.0-36.9,adult (Chronic) Chest pain (Chronic) Chronic diastolic heart failure (Chronic) Chronic pain disorder (Chronic) Colon cancer (Chronic) Daytime sleepiness (Chronic ~2019) Depression (Chronic) Depressive disorder (Chronic) Disc degeneration, lumbar (Chronic) Dizziness and giddiness (Chronic) Drug induced constipation (Chronic) Embolic stroke (Chronic) Fatigue (Chronic) Hematuria (Chronic) Hemiparesis affecting left side as late effect of stroke (Chronic) History of colon cancer, stage III (Chronic) Hyperhidrosis (Chronic) Hyperlipidemia (Chronic) Hypertension (Chronic) Iron deficiency (Chronic) Joint pain (Chronic ~2016) Liver disease (Chronic ~2019) Localized edema (Chronic) [employer] current use of opiate analgesic (Chronic) Long-term current use of steroids (Chronic) Memory deficits (Chronic) Muscle pain (Chronic) Opioid dependence (Chronic) OZZIE on CPAP (Chronic) Osteoarthritis (Chronic) Other fatigue (Chronic) Overactive bladder (Chronic) PMR (polymyalgia rheumatica) (Chronic) Premature atrial contractions (Chronic) Repeated falls (Chronic) Rib pain (Chronic) Sciatic nerve pain (Chronic) Secondary multiple arthritis (Chronic) Sleep apnea (Chronic) Spinal stenosis (Chronic) Lumbar region/neurogenic claudication Sternal pain (Chronic) Stomach ulcer (Chronic ~1965) Stroke (Chronic ~2006) Tobacco dependence (Chronic) Type 2 diabetes mellitus (Chronic ~2015) Type 2 diabetes mellitus with diabetic polyneuropathy (Chronic) Surgical History History of back surgery (Chronic ~2014) History of colonoscopy (Chronic 07/21/19) Hx of carpal tunnel repair (Chronic ~1991) Right Hx of colostomy (Chronic ~2004) Hx of fusion of cervical spine (Chronic) ' Hx of right knee surgery (Chronic ~2000) Hx of surgical procedure (Chronic) port-a-cath placement right chest 1994 Hx of total hip arthroplasty (Chronic) Family History Father , TC Depression Mother Cancer Arthritis High blood pressure Migraines Brother Parkinsons Arthritis High blood pressure Sister Arthritis High blood pressure Social History Smoking Status: Current every day smoker Alcohol Intake Frequency: does not drink Substance Use: does not use Exam Narrative Narrative: Obtunded and somnolent. Speaking very slowly consistent with what I have seen of hepatic encephalopathy in the past. He does have a Resting tremor and asterixis. He did urinate into a urinal as he did not want a Kim catheter. He required assistance for that He is normocephalic atraumatic. Conjunctive are clear sclerae white nonicteric. Extraocular movements are intact. No nasal discharge or congestion.Oropharynx with dry buccal mucosa. Tongue is midline. Neck is supple without lymphadenopathy or thyromegaly. Heart is regular rate and rhythm no murmur appreciated. Lungs are clear to auscultation mostly but he does seem to be requiring significant respiratory effort. I do not hear significant wheezing or rales. However I cannot hear the bases well. Abdomen is nondistended but not entirely soft either. He is tender all over but I do not feel a specific point tenderness no guarding.No pedal edema. I do not see evidence of acute focal neurologic deficit. He is cooperating for physical exam and interview is much as he can and it seems like he has general global weakness General Limitations: no limitations Course Course Course Narrative: Patient was initially interviewed and assessed as best as possible and was almost immediately sent to the scanner to make sure that we were not missing a repeat CVA. This turned out to be negative. Differential diagnosis Includes CVA versus hepatic encephalopathy versus metabolic derangement versus acute infection etc. As he has had Diarrhea all day from the [facility] medicine lactulose for hepatic encephalopathy/elevated ammonia level, I do think he was dehydrated so we started some IVFluids.He was quite obtunded but was able answer questions appropriately albeit slowly. He had general weakness. I got most history actually from his chart and EMS as I was limited in my ability to gather history and review of systems until his came in I did write for some Dilaudid for pain.His vital signs were initially pretty good despite his presentation But he did require oxygen. He did not have a true fever but his temperature was mildly elevated at 99.3 Initial labs showed leukocytosis and then we got his chemistry back which showed elevated liver enzymes at 1.9 And hyperkalemia at 5.7. He did not have peaked T waves on EKG We started Kayexalate furosemide and calcium chloride per hyperkalemia protocol CT scan of the head was negative for acute findings. Chest x-ray showed some possible pulmonary congestion but he does not look like a heart failure patient. He could have some COPD.CT scan of the abdomen and pelvis without contrast shows fatty liver but only trace ascites.As he did have some belly pain I considered the diagnosis of spontaneous bacterial peritonitis but he does not have ascites or true fever Discussed results with Dr. Sauer our hospitalist. He agreed to accept the p atient for further care and evaluation and asked me to put in holding orders. I wrote handwritten holding orders for Dr. Sauer to include Xifaxan 550 mg to start now, continuing IV fluids for acute renal failure And Late morning lab. Vital Signs Vital signs: Vital Signs Temperature 99.3 F H 05/18/20 00:07 Pulse Rate 76 05/18/20 00:07 Respiratory Rate 22 05/18/20 00:07 Blood Pressure 135/62 05/18/20 00:07 Pulse Oximetry (%) 91 05/18/20 00:07 Temperature 99.3 F H 05/18/20 00:07 Pulse Rate 71 05/18/20 03:41 Respiratory Rate 11 L 05/18/20 03:41 Blood Pressure 130/60 05/18/20 03:58 Pulse Oximetry (%) 98 05/18/20 03:[address] [facility] Lab Data Lab results reviewed: Yes I reviewed the patient's lab results. Lab results narrative: Urinalysis ormyh-ii-leja dipstick shows no leukocytes or blood but specific gravity 1.015- Normal Result diagrams: 05/18/20 00:23 05/18/20 00:23 Labs: Lab Results 05/18/20 05/18/20 05/18/20 Range/Units 00:23 00:23 00:23 WBC 14.7 H (4.50-11.00) K/mcL RBC 4.95 (4.63-6.08) M/mcL Hgb 12.1 L (13.7-17.5) g/dL Hct 37.9 L (40.1-51.0) % MCV 76.6 L (80.0-100.0) fL MCH 24.4 L (26.0-34.0) pg MCHC 31.9 (31.0-36.0) g/dL RDW 19.6 H (11.5-14.5) % Plt Count 192 (140-440) K/mcL MPV 10.7 H (7.4-10.4) fL Gran % 72.1 (38.0-78.0) % Lymph % (Auto) 12.3 L (15.5-49.0) % [place] % (Auto) 13.2 H (1.0-12.0) % Eos % (Auto) 2.1 (0.0-7.0) % Baso % (Auto) 0.3 (0.0-2.0) % Gran # 10.62 H (1.80-8.00) K/mcL Lymph # (Auto) 1.81 (1.50-4.80) K/mcL [place] # (Auto) 1.95 H (0.10-0.90) K/mcL Eos # (Auto) 0.31 (0.00-0.70) K/mcL Baso # (Auto) 0.04 (0.00-0.30) K/mcL VBG Lactic Acid 1.6 (0.5-2.0) mmol/L Sodium 134 (133-145) mmol/L Potassium 5.7 H (3.3-5.1) mmol/L Chloride 102 (96-108) mmol/L Carbon Dioxide 20 L (22-30) mmol/L Anion Gap 12.0 (8-16) BUN 37 H (8-23) mg/dl Creatinine 1.9 H (0.7-1.2) mg/dl GFR Calculation 34 Glucose 111 H (70-105) mg/dL Calcium 9.4 (8.6-10.4) mg/dl Total Bilirubin 0.8 (0.0-1.0) mg/dL AST 47 H (0-37) U/l ALT 29 (0-40) U/l Alkaline Phosphatase 93 (39-117) U/L Ammonia (16-60) umol/L Total Protein 7.2 (5.9-8.4) gm/dL Albumin 3.5 (3.2-5.2) gm/dL Globulin 3.7 (2.2-3.7) gm/dL Albumin/Globulin Ratio 0.9 L (1.0-2.3) Lipase (7-60) U/L 05/18/20 05/18/20 Range/Units 00:23 00:51 WBC (4.50-11.00) K/mcL RBC (4.63-6.08) M/mcL Hgb (13.7-17.5) g/dL Hct (40.1-51.0) % MCV (80.0-100.0) fL MCH (26.0-34.0) pg MCHC (31.0-36.0) g/dL RDW (11.5-14.5) % Plt Count (140-440) K/mcL MPV (7.4-10.4) fL Gran % (38.0-78.0) % Lymph % (Auto) (15.5-49.0) % [place] % (Auto) (1.0-12.0) % Eos % (Auto) (0.0-7.0) % Baso % (Auto) (0.0-2.0) % Gran # (1.80-8.00) K/mcL Lymph # (Auto) (1.50-4.80) K/mcL [place] # (Auto) (0.10-0.90) K/mcL Eos # (Auto) (0.00-0.70) K/mcL Baso # (Auto) (0.00-0.30) K/mcL VBG Lactic Acid (0.5-2.0) mmol/L Sodium (133-145) mmol/L Potassium (3.3-5.1) mmol/L Chloride (96-108) mmol/L Carbon Dioxide (22-30) mmol/L Anion Gap (8-16) BUN (8-23) mg/dl Creatinine (0.7-1.2) mg/dl GFR Calculation Glucose (70-105) mg/dL Calcium (8.6-10.4) mg/dl Total Bilirubin (0.0-1.0) mg/dL AST (0-37) U/l ALT (0-40) U/l Alkaline Phosphatase (39-117) U/L Ammonia 104 H (16-60) umol/L Total Protein (5.9-8.4) gm/dL Albumin (3.2-5.2) gm/dL Globulin (2.2-3.7) gm/dL Albumin/Globulin Ratio (1.0-2.3) Lipase 58 (7-60) U/L Radiology Data Radiology results reviewed: Yes I reviewed the patient's radiology results. Radiology results narrative: CT scan of the head showed no acute findings Chest x-ray does not show any acute Findings although in general Note cardiomegaly And prominent pulmonary vasculature CT scan of the abdomen and pelvis without contrast Did not show significant ascites but did show hepatic steatosis. Note fat stranding anterior to right Perirenal fascia EKG Data EKG #1: EKG attestation: Yes I reviewed and interpreted this EKG. and Yes There are no EKG findings of acute coronary syndrome EKG results narrative: Sinus rhythm with a rate of 72 borderline low voltage especially in the extremity leads consistent with his pulmonary disease.Abnormal R wave progression
[2020-05-18] MEDS: INSULIN LISPRO 1 UNIT/0.01 ML UNIT SQ SCH ×3 (12:05→21:00)
--- NOTE | 2020-05-18 12:39 | Internal Med Progress Note ---
SUBJECTIVE Subjective Patient information: Note initiated : 05/18/20 at 12:38 pm Service Date, if different from initiated Date: [] Patient: Siddharth Painter a 74 y/o M admitted on 05/18/20 for weakness. Chief Complaint: [] of present illness: Mr. Painter is a 74 year old morbidly obese M with no his tory of embolic CVA, morbid obesity with OZZIE, DM type II,HTN, BPH and recent diagnosis of liver cirrhosis with hepatic encephalopathy. He was seen on Thursday at GI clinic with fatigue and confusion and 17 pound weight loss after he was initiated on furosemide 40 and spironolactone 100 a couple of weeks ago for ascites. Due to elevation in creatinine to 1.5 the dose was cut into half and subsequently discontinued on Thursday, May 16. Patient was started on lactulose on May 17. Shortly after initiation of lactulose he has had multiple episodes of liquid stools presents to the ER with weakness and dehydration. Patient work-up was consistent with acute renal failure. Potassium 5.7. Pat ient was started on hyperkalemia protocol. Ammonia over 100. Patient received crystalloids And was started on hyperkalemia protocol Hospitalist service was consulted for admission At the time of evaluation patient is encephalopathic confused drowsy and lethargic. He continues to have persistent stooling and is incontinent. Endorses to minimal abdominal discomfort but denies fever, chills. His symptoms has been ongoing for over 24 hours. He was able to participate in review of systems and denies chest pain, shortness of breath headache or photophobia. Other than lactulose he denies major change in medications recently. 05/19 Constitutional Vitals: Vital Signs Temp Pulse Resp BP Pulse Ox 98.6 F 73 13 107/57 94 05/18/20 12:00 05/18/20 12:00 05/18/20 12:00 05/18/20 08:00 05/18/20 12:00 Period Temp Pulse Resp BP Sys/Perry Pulse Ox Last 24 Hr 98.6 F-99.3 F 71-84 10-22 105-147/38-106 91-100 Intake and Output 05/17/20 05/18/20 05/18/20 21:59 05:59 13:59 Intake Total 1000 120 Output Total 550 Balance 1000 -430 Weight 105.687 kg Intake & Output: Intake & Output 05/17/20 05/18/20 05/18/20 21:59 05:59 13:59 Intake Total 1000 120 Output Total 550 Balance 1000 -430 Weight 105.687 kg Intake: IV 1000 Sodium Chloride 0.9% 1,000 ml @ 1000 Wide Open IV BOLUS ONE Rx#: [id number] Oral 120 Output: Void Amount 250 Urine/Stool Mix 300 Other: Percent of Meal Consumed Refused Exam: General: lethargic, No acute Distress Eyes/N/T: EOMI, Head/Neck: neck supple, CV: RRR, No murmurs, Pulm: Diminished at bases. no wheezing Abd: soft, nontender,distended +BS x4 Ext: no clubbing/cyanosis/edema Neuro: Alert, no focal deficits, moves all extremities, Skin: warm/dry OBJ DATA Labs CBC & Chem 7: 05/18/20 08:27 05/18/20 08:27 Labs: Abnormal Lab Results 05/18/20 05/18/20 05/18/20 08:27 08:27 08:27 WBC 14.6 H Hgb 12.1 L Hct 39.3 L MCV 78.6 L MCH 24.2 L MCHC 30.8 L RDW 20.1 H MPV 10.7 H Lymph % (Auto) [place] % (Auto) 12.3 H Gran # 9.40 H [place] # (Auto) 1.80 H Sodium 132 L Potassium 5.3 H Carbon Dioxide 17 L BUN 35 H Creatinine 1.5 H Glucose 120 H AST 49 H Ammonia 128 H Albumin/Globulin Ratio 0.9 L 05/18/20 05/18/20 05/18/20 00:23 00:23 00:23 WBC 14.7 H Hgb 12.1 L Hct 37.9 L MCV 76.6 L MCH 24.4 L MCHC RDW 19.6 H MPV 10.7 H Lymph % (Auto) 12.3 L [place] % (Auto) 13.2 H Gran # 10.62 H [place] # (Auto) 1.95 H Sodium Potassium 5.7 H Carbon Dioxide 20 L BUN 37 H Creatinine 1.9 H Glucose 111 H AST 47 H Ammonia 104 H Albumin/Globulin Ratio 0.9 L Meds: Medications Acetaminophen (Tylenol) 650 mg PO Q4-6HP PRN; Protocol PRN Reason: Per Pain Protocol/Fever > 101 Apixaban (Eliquis) 5 mg PO BID [facility] Last Admin: 05/18/20 10:26 Dose: 5 mg Documented by: Atorvastatin Calcium (Lipitor) 20 mg PO HS [facility] Clonidine HCl (Catapres) 0.1 mg PO BID [facility] Last Admin: 05/18/20 10:26 Dose: 0.1 mg Documented by: Cyanocobalamin (Vitamin B-12) 1,000 mcg PO BID [facility] Stop: 05/22/20 21:01 Last Admin: 05/18/20 10:26 Dose: 1,000 mcg Documented by: Diagnostic Test (Pha) (Accu-Chek) 1 each FS [facility] Last Admin: 05/18/20 12:05 Dose: 1 each Documented by: Docusate Sodium (Colace) 100 mg PO QDAY [facility] Last Admin: 05/18/20 10:27 Dose: Not Given Documented by: Finasteride (Proscar) 5 mg PO QDAY [facility] Last Admin: 05/18/20 10:27 Dose: 5 mg Documented by: Hydromorphone HCl (Dilaudid) 0.5 mg IV Q15MIN PRN; Protocol PRN Reason: Per Pain Protocol Last Admin: 05/18/20 02:30 Dose: 0.5 mg Documented by: Sodium Chloride (Sodium Chloride 0.9%) 1,000 mls @ 50 mls/hr IV .Q20H [facility] Stop: 05/20/20 19:59 Last Admin: 05/18/20 10:25 Dose: 50 mls/hr Documented by: Insulin Human Lispro (Humalog) 0 unit SQ [facility]; Protocol Last Admin: 05/18/20 12:05 Dose: Not Given Documented by: Iron Carb/Multivit/[place]/Folic Acid (Multivitamin W/Minerals) 1 tab PO DAILY [facility] Last Admin: 05/18/20 10:26 Dose: 1 tab Documented by: Lactulose (Cephulac) 10 gm PO DAILYP PRN PRN Reason: Constipation Levothyroxine Sodium (Synthroid) 88 mcg PO QAMAC [facility] Magnesium Oxide (Magnesium Oxide) 400 mg PO DAILY [facility] Last Admin: 05/18/20 10:26 Dose: 400 mg Documented by: Melatonin (Melatonin 3mg Tablet) 3 mg PO HSP PRN PRN Reason: Insomnia Mirtazapine (Remeron) 15 mg PO QHS [facility] Omeprazole (Prilosec) 20 mg PO DAILYP PRN PRN Reason: gi Ondansetron HCl (Zofran Odt) 4 mg SL Q4-6HP PRN; Protocol PRN Reason: Nausea And Vomiting Ondansetron HCl (Zofran) 4 mg IV Q4HP PRN; Protocol PRN Reason: Nausea And Vomiting Oxycodone HCl (Roxicodone) 15 mg PO Q6HP PRN PRN Reason: Pain Last Admin: 05/18/20 10:26 Dose: 15 mg Documented by: Pregabalin (Lyrica) 150 mg PO BID [facility] Last Admin: 05/18/20 10:26 Dose: 150 mg Documented by: Senna (Senokot) 2 tab PO HSP PRN PRN Reason: Constipation Sitagliptin Phosphate (Januvia) 50 mg PO DAILY [facility] Last Admin: 05/18/20 10:26 Dose: 50 mg Documented by: Sodium Chloride (Saline Flush) 10 ml IV Q8 [facility] Tamsulosin HCl (Flomax) 0.4 mg PO QHS [facility] Thiamine HCl (Vitamin B1) 100 mg PO DAILY [facility] Last Admin: 05/18/20 10:26 Dose: 100 mg Documented by: A/P Assessment and plan (1) Acute renal failure: Status: Acute Comment: Acute renal failure Qualifiers: Acute renal failure type: unspecified Qualified Code(s): N17.9 - Acute kidney failure, unspecified Narrative A/P Narrative: A: *MACK on CKD II: Likely secondary volume depletion from persistent diarrhea. *Hepatic encephalopathy: Started rifaximin. *Ascites, mild: 2/2 cirrhosis *Severe diarrhea likely noninfectious, Secondary to lactulose. *Hyperkalemia on crystalloids. Status post Kayexalate and hyperkalemia protocol. Repeat potassium. -improving *Weakness and deconditioning *Hypothyroidism: continue thyroxine *DM type II: *BPH continue tamsulosin/finasteride *HTN: *Anticoagulation for h/o emblic CVA: on apixaban *Chronic pain: on oxycodone *Hyperlipidemia: continue statin *Neuropathy: continue Lyrica Plan: -Crystalloids -Started rifaximin -Diuretics on hold due to MACK -Hold lactulose. Send stool studies including C. difficile/cultures. -Diarrhea work-up, c. diff pending -Monitor renal function -cont amlodipine, hold benazepril in light of MACK and spironolactone in light of hyperkalemia -SSI -PT OT nutrition support -ppx: apixaban full code Time Spent With Patient Time: Total time spent is greater than 50% in coordination of care (as documented) at patient's floor/unit and/or counseling patient:
--- NOTE | 2020-05-18 12:44 | Internal Med History&Physical ---
HPI History of Present Illness Patient information: Note initiated : 05/18/20 at 7:53 am Service Date, if different from initiated Date: [] Patient: Siddharth Painter a 74 y/o M admitted on 05/18/20 for weakness. Chief Complaint: Diarrhea and weakness History of present illness: Mr. Painter is a 74 year old morbidly obese M with no history of embolic CVA, morbid obesity with OZZIE, DM type II,HTN, BPH and recent diagnosis of liver cirrhosis with hepatic encephalopathy. He was seen on Thursday at GI clinic with fatigue and confusion and 17 pound weight loss after he was initiated on furosemide 40 and spironolactone 100 a couple of weeks ago for ascites. Due to elevation in creatinine to 1.5 the dose was cut into half and subsequently discontinued on Thursday, May 16. Patient was started on lactulose on May 17. Shortly after initiation of lactulose he has had multiple episodes of liquid stools presents to the ER with weakness and dehydration. Patient work-up was consistent with acute renal failure. Potassium 5.7. Patient was started on hyperkalemia protocol. Ammonia over 100. Patient received crystalloids And was started on hyperkalemia protocol Hospitalist service was consulted for admission At the time of evaluation patient is encephalopathic confused drowsy and lethargic. He continues to have persistent stooling and is incontinent. Endorses to minimal abdominal discomfort but denies fever, chills. His symptoms has been ongoing for over 24 hours. He was able to participate in review of systems and denies chest pain, shortness of breath headache or photophobia. Other than lactulose he denies major change in medications recently. Review of Systems Review of systems: A 10 point review system was performed and is negative except for ones discussed above [facility] Medical History Acid reflux (Chronic ~1963) Androgen deficiency (Chronic) Anxiety (Chronic) Arthritis (Chronic ~2009) Atopic dermatitis (Chronic) Atopic dermatitis and related condition (Chronic) Back Pain (Chronic) Bleeding tendency (Chronic ~2009) BMI 36.0-36.9,adult (Chronic) Chest pain (Chronic) Chronic diastolic heart failure (Chronic) Chronic pain disorder (Chronic) Colon cancer (Chronic) Daytime sleepiness (Chronic ~2018) Depression (Chronic) Depressive disorder (Chronic) Disc degeneration, lumbar (Chronic) Dizziness and giddiness (Chronic) Drug induced constipation (Chronic) Embolic stroke (Chronic) Fatigue (Chronic) Hematuria (Chronic) Hemiparesis affecting left side as late effect of stroke (Chronic) History of colon cancer, stage III (Chronic) Hyperhidrosis (Chronic) Hyperlipidemia (Chronic) Hypertension (Chronic) Iron deficiency (Chronic) Joint pain (Chronic ~2015) Liver disease (Chronic ~2019) Localized edema (Chronic) half-way current use of opiate analgesic (Chronic) Long-term current use of steroids (Chronic) Memory deficits (Chronic) Muscle pain (Chronic) Opioid dependence (Chronic) OZZIE on CPAP (Chronic) Osteoarthritis (Chronic) Other fatigue (Chronic) Overactive bladder (Chronic) PMR (polymyalgia rheumatica) (Chronic) Premature atrial contractions (Chronic) Repeated falls (Chronic) Rib pain (Chronic) Sciatic nerve pain (Chronic) Secondary multiple arthritis (Chronic) Sleep apnea (Chronic) Spinal stenosis (Chronic) Lumbar region/neurogenic claudication Sternal pain (Chronic) Stomach ulcer (Chronic ~1965) Stroke (Chronic ~2005) Tobacco dependence (Chronic) Type 2 diabetes mellitus (Chronic ~2015) Type 2 diabetes mellitus with diabetic polyneuropathy (Chronic) Surgical History History of back surgery (Chronic ~2014) History of colonoscopy (Chronic 07/21/19) Hx of carpal tunnel repair (Chronic ~1991) Right Hx of colostomy (Chronic ~2004) Hx of fusion of cervical spine (Chronic) 's Hx of right knee surgery (Chronic ~2000) Hx of surgical procedure (Chronic) port-a-cath placement right chest 1994 Hx of total hip arthroplasty (Chronic) Family History Father , TC Depression Mother Cancer Arthritis High blood pressure Migraines Brother Parkinsons Arthritis High blood pressure Sister Arthritis High blood pressure Social History marital status: other: Children-5 smoking status: Current every day smoker alcohol intake frequency: does not drink substance use type: does not use MEDS/ALLERGIES Home Medications and Allergies Home Medications Medication Instructions Recorded Confirmed Type clonidine HCl 0.1 mg PO BID 03/08/19 05/18/20 History magnesium oxide 400 mg PO DAILY 03/08/19 05/18/20 History omega-3 fatty acids-fish oil 1,000 mg PO DAILY 03/08/19 05/18/20 History saw palmetto 160 mg PO BID 03/08/19 05/18/20 History vitamin B complex 1 cap PO DAILY 03/08/19 05/18/20 History levothyroxine 88 mcg PO QAMAC 03/15/19 05/18/20 History lidocaine 5 % topical patch 3 patch TOPICAL QDAY each 07/25/19 05/18/20 History testosterone cypionate 200 mg/mL 100 mg IM Q14D ml 07/25/19 05/18/20 History intramuscular oil mirtazapine 15 mg tablet 15 mg PO QHS 01/27/20 05/18/20 History pregabalin 150 mg capsule 150 mg PO BID 01/27/20 05/18/20 History rosuvastatin 10 mg tablet 10 mg PO QDAY 01/27/20 05/18/20 History tamsulosin 0.4 mg capsule 0.4 mg PO QHS #90 cap 04/16/20 05/18/20 Rx finasteride 5 mg tablet 5 mg PO QDAY #30 tab 04/19/20 05/18/20 Rx apixaban 5 mg tablet 5 mg PO BID 05/02/20 05/18/20 History amlodipine 5 mg-benazepril 40 mg 1 cap PO QDAY 05/04/20 05/18/20 History capsule docusate sodium 100 mg capsule 100 mg PO QDAY 05/04/20 05/18/20 History furosemide 40 mg tablet 40 mg PO QDAY 05/04/20 05/18/20 History metformin 500 mg tablet,extended 500 mg PO BID tab 05/04/20 05/18/20 History release 24 hr omeprazole 20 mg capsule,delayed 20 mg PO QDAY PRN 05/04/20 05/18/20 History release oxycodone 15 mg tablet 15 mg PO Q6H PRN tab 05/04/20 05/18/20 History spironolactone 100 mg tablet 100 mg PO QDAY 05/04/20 05/18/20 History Lactulose 10 mg PO DAILY 05/18/20 05/18/20 History Allergies Allergy/AdvReac Type Severity Reaction Status Date / Time Diclofenac [From [facility]] Allergy Unknown Unknown Verified 05/18/20 00:57 fentanyl AdvReac Intermediate Blister Verified 05/18/20 00:57 EXAM Constitutional Vitals: Temp Pulse Resp BP Pulse Ox 99.3 F H 71 11 L 130/60 98 05/18/20 00:07 05/18/20 03:41 05/18/20 03:41 05/18/20 03:58 05/18/20 03:41 Head Additional comments: Head normocephalic oral cavity dry Appears lethargic and confused Neck no evident lymphadenopathy Eye movement symmetrical, S1-S2 regular Diminished breath sounds bases Abdomen soft nontender, distended Lower extremity no cyanosis clubbing no joint swelling Skin no suspicious lesion Psych lethargic Neuro nonfocal DATA Data Completed and Pending Labs on day of discharge: Labs from last 24 hours 05/18/20 05/18/20 05/18/20 00:51 00:23 00:23 WBC RBC Hgb Hct MCV MCH MCHC RDW Plt Count MPV Gran % Lymph % (Auto) Cole % (Auto) Eos % (Auto) Baso % (Auto) Gran # Lymph # (Auto) Cole # (Auto) Eos # (Auto) Baso # (Auto) VBG Lactic Acid 1.6 Sodium Potassium Chloride Carbon Dioxide Anion Gap BUN Creatinine GFR Calculation Glucose Calcium Total Bilirubin AST ALT Alkaline Phosphatase Ammonia 104 H Total Protein Albumin Globulin Albumin/Globulin Ratio Lipase 58 05/18/20 05/18/20 00:23 00:23 WBC 14.7 H RBC 4.95 Hgb 12.1 L Hct 37.9 L MCV 76.6 L MCH 24.4 L MCHC 31.9 RDW 19.6 H Plt Count 192 MPV 10.7 H Gran % 72.1 Lymph % (Auto) 12.3 L Cole % (Auto) 13.2 H Eos % (Auto) 2.1 Baso % (Auto) 0.3 Gran # 10.62 H Lymph # (Auto) 1.81 Cole # (Auto) 1.95 H Eos # (Auto) 0.31 Baso # (Auto) 0.04 VBG Lactic Acid Sodium 134 Potassium 5.7 H Chloride 102 Carbon Dioxide 20 L Anion Gap 12.0 BUN 37 H Creatinine 1.9 H GFR Calculation 34 Glucose 111 H Calcium 9.4 Total Bilirubin 0.8 AST 47 H ALT 29 Alkaline Phosphatase 93 Ammonia Total Protein 7.2 Albumin 3.5 Globulin 3.7 Albumin/Globulin Ratio 0.9 L Lipase A/P Assessment and plan (1) Acute renal failure: Status: Acute Comment: Acute renal failure Qualifiers: Acute renal failure type: unspecified Qualified Code(s): N17.9 - Acute kidney failure, unspecified Narrative A/P Narrative: * Acute renal failure-creatinine 1.9. Likely secondary volume depletion from persistent diarrhea. Continue crystalloid challenge. Monitor renal function * Hepatic encephalopathy-GI consult. Start rifaximin. * Ascites secondary to cirrhosis. Diuretics on hold due to MACK * Severe diarrhea likely noninfectious. Secondary to lactulose. Hold lactulose. Send stool studies including C. difficile/cultures. * Hypokalemia on crystalloids. Status post Kayexalate and hyperkalemia pr otocol. Repeat potassium. * Weakness and deconditioning continue aggressive PT OT * Hypothyroidism continue thyroxine * DM type II continue sliding-scale * BPH continue tamsulosin/finasteride * History of hypertension continue amlodipine/hold benazepril in light of MACK and spironolactone in light of hyperkalemia * Anticoagulation for CVA prophylaxis on apixaban * Chronic pain on oxycodone * Hyperlipidemia continue statin * Neuropathy continue Lyrica * Full code Plan * Inpatient admission * Crystalloids * Start rifaximin * Monitor renal function * Diarrhea work-up * GI consult * Pre-existing medical condition management home medications * PT OT nutrition support * Discharge planning Time Spent With Patient Time: Total time spent is greater than 50% in coordination of care (as documented) at patient's floor/unit and/or counseling patient:
[2020-05-18] MEDS: 0.9 % SODIUM CHLORIDE 10 ML SYRINGE IV SCH ×2 (14:35→20:56)
[2020-05-18 18:31] LABS: Blood Urea Nitrogen 32 mg/dl (8-23); Calcium 8.6 mg/dl (8.6-10.4); Carbon Dioxide 19 mmol/L (22-30); Chloride 106 mmol/L (96-108); Glomerular Filtration Rate 54; Glucose 94 mg/dL (70-105)
[2020-05-18] MEDS: MIRTAZAPINE 15 MG TABLET PO SCH (20:55)
[2020-05-18] MEDS: ATORVASTATIN 20 MG TABLET PO SCH (20:56)
[2020-05-18] MEDS: TAMSULOSIN 0.4 MG CAPSULE PO SCH (20:56)
[2020-05-19] MEDS: 0.9 % SODIUM CHLORIDE 10 ML SYRINGE IV SCH ×3 (05:23→20:27)
[2020-05-19] MEDS: 0.9 % SODIUM CHLORIDE 1,000 ML IV SCH (05:24)
[2020-05-19 06:53] LABS: Hemoglobin 11.4 g/dL (13.7-17.5); Mean Cell Volume 77.6 fL (80.0-100.0); Mean Corpuscular HGB Conc 31.7 g/dL (31.0-36.0); Mean Platelet Volume 10.2 fL (7.4-10.4); Platelet Count 144 K/mcL (140-440); RBC 4.64 M/mcL (4.63-6.08); Red Cell Distribution Width 19.8 % (11.5-14.5); WBC 10.4 K/mcL (4.50-11.00)
[2020-05-19] MEDS: LEVOTHYROXINE 88 MCG TABLET PO SCH (07:23)
[2020-05-19 07:29] LABS: ALT/SGPT 28 U/l (0-40); AST/SGOT 40 U/l (0-37); Albumin 3.3 gm/dL (3.2-5.2); Alkaline Phosphatase 87 U/L (39-117); Bilirubin,Direct 0.2 mg/dL (0.0-0.3); Bilirubin,Total 0.7 mg/dL (0.0-1.0); Calcium 8.8 mg/dl (8.6-10.4); Carbon Dioxide 21 mmol/L (22-30); Chloride 107 mmol/L (96-108); Globulin 3.4 gm/dL (2.2-3.7); Glomerular Filtration Rate 59; Glucose 86 mg/dL (70-105); Lactate Dehydrogenase 181 U/L (94-250); Phosphorous 3.1 mg/dL (2.7-4.5); Triglycerides 68 mg/dl (<150)
[2020-05-19] MEDS: INSULIN LISPRO 1 UNIT/0.01 ML UNIT SQ SCH ×4 (07:29→20:27)
[2020-05-19 07:30] LABS: Blood Urea Nitrogen 25 mg/dl (8-23)
[2020-05-19] MEDS: oxyCODONE HCL 5 MG TABLET PO PRN ×3 (07:30→20:26)
--- NOTE | 2020-05-19 08:17 | Internal Med Progress Note ---
SUBJECTIVE Subjective Patient information: Note initiated : 05/19/20 at 8:14 am Service Date, if different from initiated Date: [] Patient: Siddharth Painter a 74 y/o M admitted on 05/18/20 for weakness. Chief Complaint: [] HPI: Mr. Painter is a 74 year old morbidly obese M with no history of embolic CVA, morbid obesity with OZZIE, DM type II,HTN, BPH and recent diagnosis of liver cirrhosis with hepatic encephalopathy. He was seen on Thursday at GI clinic with fatigue and confusion and 17 pound weight loss after he was initiated on furosemide 40 and spironolactone 100 a couple of weeks ago for ascites. Due to elevation in creatinine to 1.5 the dose was cut into half and subsequently discontinued on Thursday, May 16. Patient was started on lactulose on May 17. Shortly after initiation of lactulose he has had multiple episodes of liquid stools presents to the ER with weakness and dehydration. Patient work-up was consistent with acute renal failure. Potassium 5.7. Patient was started on hyperkalemia protocol. Ammonia over 100. Patient received crystalloids And was started on hyperkalemia protocol Hospitalist service was consulted for admission At the time of evaluation patient is encephalopathic confused drowsy and lethargic. He continues to have persistent stooling and is incontinent. Endorses to minimal abdominal discomfort but denies fever, chills. His symptoms has been ongoing for over 24 hours. He was able to participate in review of systems and denies chest pain, shortness of breath headache or photophobia. Other than lactulose he denies major change in medications recently. 05/19 No overnight events or new complaints. Patient feeling better. Knee function improved. Review of Systems: denies headache/fever/chills/nausea/vomiting/chest or abdominal pa in/cough/dyspnea/diarrhea. Otherwise see above. Constitutional Vitals: Vital Signs Temp Pulse Resp BP Pulse Ox 97.6 F 49 L 17 137/63 98 05/19/20 02:01 05/19/20 06:32 05/19/20 06:32 05/19/20 06:00 05/19/20 06:32 Period Temp Pulse Resp BP Sys/Perry Pulse Ox Last 24 Hr 97.6 F-99.4 F 41-115 8-25 106-142/52-66 90-99 Intake and Output 05/18/20 05/19/20 05/19/20 21:59 05:59 13:59 Intake Total 540 1349 Output Total 1075 Balance -535 1349 Weight 102.994 kg Intake & Output: Intake & Output 05/18/20 05/19/20 05/19/20 21:59 05:59 13:59 Intake Total 540 1349 Output Total 1075 Balance -535 1349 Weight 102.994 kg Intake: IV 949 Sodium Chloride 0.9% 1,000 ml @ 949 50 mls/hr IV .Q20H [facility] Rx#: [id number] Oral 540 400 Output: Void Amount 1075 Other: Meal Dinner Percent of Meal Consumed 100% Urine Appearance Clear Clear Urine Color Dark Yellow Dark Yellow Urine Odor Strong Strong Exam: Exam General: Alert and awake, No acute Distress Eyes/N/T: EOMI, Head/Neck: neck supple, CV: RRR, 2/6 SM Pulm: Diminished at bases. no wheezing Abd: soft, nontender,distended +BS x4 Ext: no clubbing/cyanosis/edema Neuro: Alert and oriented, no focal deficits, moves all extremities, Skin: warm/dry OBJ DATA Labs CBC & Chem 7: 05/19/20 04:44 05/19/20 04:44 Labs: Abnormal Lab Results 05/19/20 05/19/20 05/18/20 04:44 04:44 16:53 WBC Hgb 11.4 L Hct 36.0 L MCV 77.6 L MCH 24.6 L MCHC RDW 19.8 H MPV Lymph % (Auto) Dubois % (Auto) Gran # Dubois # (Auto) Sodium Potassium Carbon Dioxide 21 L 19 L BUN 25 H 32 H Creatinine 1.3 H Glucose Uric Acid 9.0 H GGT 98 H AST 40 H Ammonia Albumin/Globulin Ratio 05/18/20 05/18/20 05/18/20 08:27 08:27 08:27 WBC 14.6 H Hgb 12.1 L Hct 39.3 L MCV 78.6 L MCH 24.2 L MCHC 30.8 L RDW 20.1 H MPV 10.7 H Lymph % (Auto) Dubois % (Auto) 12.3 H Gran # 9.40 H Dubois # (Auto) 1.80 H Sodium 132 L Potassium 5.3 H Carbon Dioxide 17 L BUN 35 H Creatinine 1.5 H Glucose 120 H Uric Acid GGT AST 49 H Ammonia 128 H Albumin/Globulin Ratio 0.9 L 05/18/20 05/18/20 05/18/20 00:23 00:23 00:23 WBC 14.7 H Hgb 12.1 L Hct 37.9 L MCV 76.6 L MCH 24.4 L MCHC RDW 19.6 H MPV 10.7 H Lymph % (Auto) 12.3 L Dubois % (Auto) 13.2 H Gran # 10.62 H Dubois # (Auto) 1.95 H Sodium Potassium 5.7 H Carbon Dioxide 20 L BUN 37 H Creatinine 1.9 H Glucose 111 H Uric Acid GGT AST 47 H Ammonia 104 H Albumin/Globulin Ratio 0.9 L Meds: Medications Acetaminophen (Tylenol) 650 mg PO Q4-6HP PRN; Protocol PRN Reason: Per Pain Protocol/Fever > 101 Apixaban (Eliquis) 5 mg PO BID [facility] Last Admin: 05/18/20 20:56 Dose: 5 mg Documented by: Atorvastatin Calcium (Lipitor) 20 mg PO [facility] Last Admin: 05/18/20 20:56 Dose: 20 mg Documented by: Clonidine HCl (Catapres) 0.1 mg PO BID [facility] Last Admin: 05/18/20 20:55 Dose: 0.1 mg Documented by: Cyanocobalamin (Vitamin B-12) 1,000 mcg PO BID [facility] Stop: 05/22/20 21:01 Last Admin: 05/18/20 20:56 Dose: 1,000 mcg Documented by: Diagnostic Test (Pha) (Accu-Chek) 1 each FS ACHS [facility] Last Admin: 05/19/20 07:23 Dose: 1 each Documented by: Docusate Sodium (Colace) 100 mg PO QDAY [facility] Last Admin: 05/18/20 10:27 Dose: Not Given Documented by: Finasteride (Proscar) 5 mg PO QDAY [facility] Last Admin: 05/18/20 10:27 Dose: 5 mg Documented by: Hydromorphone HCl (Dilaudid) 0.5 mg IV Q15MIN PRN; Protocol PRN Reason: Per Pain Protocol Last Admin: 05/18/20 02:30 Dose: 0.5 mg Documented by: Sodium Chloride (Sodium Chloride 0.9%) 1,000 mls @ 50 mls/hr IV .Q20H [facility] Stop: 05/20/20 19:59 Last Admin: 05/19/20 05:24 Dose: 50 mls/hr Documented by: Insulin Human Lispro (Humalog) 0 unit SQ ACHS [facility]; Protocol Last Admin: 05/19/20 07:29 Dose: Not Given Documented by: Iron Carb/Multivit/Crockett/Folic Acid (Multivitamin W/Minerals) 1 tab PO DAILY [facility] Last Admin: 05/18/20 10:26 Dose: 1 tab Documented by: Lactulose (Cephulac) 10 gm PO DAILYP PRN PRN Reason: Constipation Levothyroxine Sodium (Synthroid) 88 mcg PO QAMAC [facility] Last Admin: 05/19/20 07:23 Dose: 88 mcg Documented by: Magnesium Oxide (Magnesium Oxide) 400 mg PO DAILY [facility] Last Admin: 05/18/20 10:26 Dose: 400 mg Documented by: Melatonin (Melatonin 3mg Tablet) 3 mg PO HSP PRN PRN Reason: Insomnia Mirtazapine (Remeron) 15 mg PO QHS [facility] Last Admin: 05/18/20 20:55 Dose: 15 mg Documented by: Omeprazole (Prilosec) 20 mg PO DAILYP PRN PRN Reason: gi Ondansetron HCl (Zofran Odt) 4 mg SL Q4-6HP PRN; Protocol PRN Reason: Nausea And Vomiting Ondansetron HCl (Zofran) 4 mg IV Q4HP PRN; Protocol PRN Reason: Nausea And Vomiting Oxycodone HCl (Roxicodone) 15 mg PO Q6HP PRN PRN Reason: Pain Last Admin: 05/19/20 07:30 Dose: 15 mg Documented by: Pregabalin (Lyrica) 150 mg PO BID [facility] Last Admin: 05/18/20 20:56 Dose: 150 mg Documented by: Senna (Senokot) 2 tab PO HSP PRN PRN Reason: Constipation Sitagliptin Phosphate (Januvia) 50 mg PO DAILY [facility] Last Admin: 05/18/20 10:26 Dose: 50 mg Documented by: Sodium Chloride (Saline Flush) 10 ml IV Q8 [facility] Last Admin: 05/19/20 05:23 Dose: 10 ml Documented by: Tamsulosin HCl (Flomax) 0.4 mg PO QHS [facility] Last Admin: 05/18/20 20:56 Dose: 0.4 mg Documented by: Thiamine HCl (Vitamin B1) 100 mg PO DAILY [facility] Last Admin: 05/18/20 10:26 Dose: 100 mg Documented by: A/P Assessment and plan (1) Acute renal failure: Status: Acute Comment: Acute renal failure Qualifiers: Acute renal failure type: unspecified Qualified Code(s): N17.9 - Acute kidney failure, unspecified Narrative A/P Narrative: A: *MACK on CKD II: Likely secondary volume depletion from persistent diarrhea. -improved *Hepatic encephalopathy: Started rifaximin in place of lactulose -improved *Ascites, mild: 2/2 cirrhosis *Severe diarrhea likely noninfectious, Secondary to lactulose. *Hyperkalemia: Status post Kayexalate and hyperkalemia protocol. Resoved *Weakness and deconditioning *Hypothyroidism: continue thyroxine *DM type II: *BPH continue tamsulosin/finasteride *HTN: *Anticoagulation for h/o embolic CVA: on apixaban *Chronic pain: on oxycodone *Hyperlipidemia: continue statin *Neuropathy: continue Lyrica *OZZIE: *Obesity: Plan: -gentle IVF's -Started rifaximin -Diuretics on hold due to MACK -Hold lactulose. Send stool studies including C. difficile/cultures. -Diarrhea work-up, c. diff /norovirus pending -Monitor renal function -cont amlodipine/clonidine, hold benazepril/aldactone/lasix in light of MACK and hyperkalemia -SSI and sitagliptin - to bring in home CPAP -PT OT nutrition support -ppx: apixaban full code Time Spent With Patient Time: Total time spent is greater than 50% in coordination of care (as documented) at patient's floor/unit and/or counseling patient: QUALITY VTE Deep Vein Thrombosis/Pulmonary Embolism Present on Admission: No
[2020-05-19 09:09] LABS: Anisocytosis 1+ (NONE SEEN); Eosinophils % (Manual) 2 % (0-7); Lymphocytes % 29 % (15-49); Monocytes % (Manual) 9 % (1-12); Platelet Estimate NORMAL (NORMAL); RBC Morphology ABNORM (NORMAL); Reactive Lymphocytes 1 % (0-2); Segmented Neutrophils % 59 % (38-78)
[2020-05-19] MEDS: DOCUSATE SODIUM 100 MG CAPSULE PO SCH (10:04)
[2020-05-19] MEDS: amLODIPine 5 MG TABLET PO SCH (10:04)
[2020-05-19] MEDS: PREGABALIN 150 MG CAPSULE PO SCH ×2 (10:15→20:26)
[2020-05-19] MEDS: sitaGLIPtin 50 MG TABLET PO SCH (10:15)
[2020-05-19] MEDS: APIXABAN 5 MG TABLET PO SCH ×2 (10:15→20:25)
[2020-05-19] MEDS: CYANOCOBALAMIN (VITAMIN B-12) 500 MCG TABLET PO SCH ×2 (10:15→20:25)
[2020-05-19] MEDS: MULTIVIT,THER IRON,CA,FA & MIN 1 TABLET PO SCH (10:15)
[2020-05-19] MEDS: THIAMINE 100 MG TABLET PO SCH (10:15)
[2020-05-19] MEDS: FINASTERIDE 5 MG TABLET PO SCH (10:16)
[2020-05-19] MEDS: MAGNESIUM OXIDE 400 MG TABLET PO SCH (10:16)
[2020-05-19] MEDS: RIFAXIMIN 550 MG TABLET PO SCH ×2 (10:16→20:25)
[2020-05-19] MEDS: cloNIDine HCL 0.1 MG TABLET PO SCH ×2 (10:16→20:25)
[2020-05-19] MEDS: ATORVASTATIN 20 MG TABLET PO SCH (20:25)
[2020-05-19] MEDS: TAMSULOSIN 0.4 MG CAPSULE PO SCH (20:25)
[2020-05-19] MEDS: MIRTAZAPINE 15 MG TABLET PO SCH (20:26)
[2020-05-20] MEDS: 0.9 % SODIUM CHLORIDE 1,000 ML IV SCH (00:50)
[2020-05-20] MEDS: 0.9 % SODIUM CHLORIDE 10 ML SYRINGE IV SCH ×3 (05:20→20:55)
[2020-05-20] MEDS: oxyCODONE HCL 5 MG TABLET PO PRN ×3 (05:26→20:55)
[2020-05-20 06:33] LABS: Blood Urea Nitrogen 25 mg/dl (8-23); Calcium 8.4 mg/dl (8.6-10.4); Carbon Dioxide 21 mmol/L (22-30); Chloride 107 mmol/L (96-108); Glomerular Filtration Rate 84; Glucose 94 mg/dL (70-105)
[2020-05-20] MEDS: LEVOTHYROXINE 88 MCG TABLET PO SCH (07:22)
[2020-05-20] MEDS: INSULIN LISPRO 1 UNIT/0.01 ML UNIT SQ SCH ×4 (07:23→20:54)
--- NOTE | 2020-05-20 07:54 | Internal Med Progress Note ---
SUBJECTIVE Subjective Patient information: HPI: Mr. Painter is a 74 year old morbidly obese M with no history of embolic CVA, morbid obesity with OZZIE, DM type II,HTN, BPH and recent diagnosis of liver cirrhosis with hepatic encephalopathy. He was seen on Thursday at GI clinic with fatigue and confusion and 17 pound weight loss after he was initiated on furosemide 40 and spironolactone 100 a couple of weeks ago for ascites. Due to elevation in creatinine to 1.5 the dose was cut into half and subsequently di scontinued on Thursday, May 16. Patient was started on lactulose on May 17. Shortly after initiation of lactulose he has had multiple episodes of liquid stools presents to the ER with weakness and dehydration. Patient work-up was consistent with acute renal failure. Potassium 5.7. Patient was started on hyperkalemia protocol. Ammonia over 100. Patient received crystalloids And was started on hyperkalemia protocol Hospitalist service was consulted for admission At the time of evaluation patient is encephalopathic confused drowsy and lethargic. He continues to have persistent stooling and is incontinent. Endorses to minimal abdominal discomfort but denies fever, chills. His symptoms has been ongoing for over 24 hours. He was able to participate in review of systems and denies chest pain, shortness of breath headache or photophobia. Other than lactulose he denies major change in medications recently. 05/19 No overnight events or new complaints. Patient feeling better. Renal function improved. 05/20 Patient sitting up in chair eating breakfast. Feeling better today. Renal function continues to improve. He states his appetite is starting to improve. No new pains or complaints. Review of Systems: denies headache/fever/chills/nausea/vomiting/chest or abdominal p ain/cough/dyspnea/diarrhea. Otherwise see above. Constitutional Vitals: Vital Signs Temp Pulse Resp BP Pulse Ox 98.2 F 58 L 15 122/71 92 05/20/20 00:01 05/20/20 06:01 05/20/20 06:01 05/20/20 06:01 05/20/20 06:01 Period Temp Pulse Resp BP Sys/Perry Pulse Ox Last 24 Hr 98.2 F-99 F 31-139 12-23 119-183/44-79 88-98 Intake and Output 05/19/20 05/20/20 05/20/20 21:59 05:59 13:59 Intake Total 480 1472 Output Total 325 625 Balance 155 847 Weight 102.2 kg Intake & Output: Intake & Output 05/19/20 05/20/20 05/20/20 21:59 05:59 13:59 Intake Total 480 1472 Output Total 325 625 Balance 155 847 Weight 102.2 kg Intake: IV 972 Sodium Chloride 0.9% 1,000 ml @ 972 50 mls/hr IV .Q20H [facility] Rx#: [id number] Oral 480 500 Output: Void Amount 325 625 Other: Meal Dinner Percent of Meal Consumed 100% Feeding Ability Independent Urine Appearance Clear Clear Urine Color Dark Yellow Dark Yellow Urine Odor Strong Strong Stool Size Small Small Stool Color Brown Brown Stool Consistency Loose Loose Exam: Exam: Exam General: Alert and awake, No acute Distress Eyes/N/T: EOMI, Head/Neck: neck supple, CV: RRR, 2/6 SM Pulm: no wheezing/rhonchi Abd: soft, nontender,distended +BS x4 Ext: no clubbing/cyanosis/edema Neuro: Alert and oriented, no focal deficits, moves all extremities, Skin: warm/dry OBJ DATA Labs CBC & Chem 7: 05/19/20 04:44 05/20/20 04:46 Labs: Abnormal Lab Results 05/20/20 05/19/20 05/19/20 04:46 10:04 04:44 WBC Hgb Hct MCV MCH MCHC RDW MPV Lymph % (Auto) Hardy % (Auto) Gran # Hardy # (Auto) RBC Morphology Anisocytosis Sodium Potassium Carbon Dioxide 21 L 21 L BUN 25 H 25 H Creatinine Glucose Uric Acid 9.0 H Calcium 8.4 L GGT 98 H AST 40 H Ammonia 84 H Albumin/Globulin Ratio 05/19/20 05/18/20 05/18/20 04:44 16:53 08:27 WBC Hgb 11.4 L Hct 36.0 L MCV 77.6 L MCH 24.6 L MCHC RDW 19.8 H MPV Lymph % (Auto) Hardy % (Auto) Gran # Hardy # (Auto) RBC Morphology Abnorm A Anisocytosis 1+ A Sodium Potassium Carbon Dioxide 19 L BUN 32 H Creatinine 1.3 H Glucose Uric Acid Calcium GGT AST Ammonia 128 H Albumin/Globulin Ratio 05/18/20 05/18/20 05/18/20 08:27 08:27 00:23 WBC 14.6 H Hgb 12.1 L Hct 39.3 L MCV 78.6 L MCH 24.2 L MCHC 30.8 L RDW 20.1 H MPV 10.7 H Lymph % (Auto) Hardy % (Auto) 12.3 H Gran # 9.40 H Hardy # (Auto) 1.80 H RBC Morphology Anisocytosis Sodium 132 L Potassium 5.3 H Carbon Dioxide 17 L BUN 35 H Creatinine 1.5 H Glucose 120 H Uric Acid Calcium GGT AST 49 H Ammonia 104 H Albumin/Globulin Ratio 0.9 L 05/18/20 05/18/20 00:23 00:23 WBC 14.7 H Hgb 12.1 L Hct 37.9 L MCV 76.6 L MCH 24.4 L MCHC RDW 19.6 H MPV 10.7 H Lymph % (Auto) 12.3 L Hardy % (Auto) 13.2 H Gran # 10.62 H Hardy # (Auto) 1.95 H RBC Morphology Anisocytosis Sodium Potassium 5.7 H Carbon Dioxide 20 L BUN 37 H Creatinine 1.9 H Glucose 111 H Uric Acid Calcium GGT AST 47 H Ammonia Albumin/Globulin Ratio 0.9 L Meds: Medications Acetaminophen (Tylenol) 650 mg PO Q4-6HP PRN; Protocol PRN Reason: Per Pain Protocol/Fever > 101 Amlodipine Besylate (Norvasc) 5 mg PO DAILY [facility] Last Admin: 05/19/20 10:04 Dose: Not Given Documented by: Apixaban (Eliquis) 5 mg PO BID [facility] Last Admin: 05/19/20 20:25 Dose: 5 mg Documented by: Atorvastatin Calcium (Lipitor) 20 mg PO HS [facility] Last Admin: 05/19/20 20:25 Dose: 20 mg Documented by: Clonidine HCl (Catapres) 0.1 mg PO BID [facility] Last Admin: 05/19/20 20:25 Dose: 0.1 mg Documented by: Cyanocobalamin (Vitamin B-12) 1,000 mcg PO BID [facility] Stop: 05/22/20 21:01 Last Admin: 05/19/20 20:25 Dose: 1,000 mcg Documented by: Diagnostic Test (Pha) (Accu-Chek) 1 each FS ACHS [facility] Last Admin: 05/20/20 07:23 Dose: 1 each Documented by: Docusate Sodium (Colace) 100 mg PO QDAY [facility] Last Admin: 05/19/20 10:04 Dose: Not Given Documented by: Finasteride (Proscar) 5 mg PO QDAY [facility] Last Admin: 05/19/20 10:16 Dose: 5 mg Documented by: Hydromorphone HCl (Dilaudid) 0.5 mg IV Q15MIN PRN; Protocol PRN Reason: Per Pain Protocol Last Admin: 05/18/20 02:30 Dose: 0.5 mg Documented by: Sodium Chloride (Sodium Chloride 0.9%) 1,000 mls @ 50 mls/hr IV .Q20H [facility] Stop: 05/20/20 19:59 Last Admin: 05/20/20 00:50 Dose: 50 mls/hr Documented by: Insulin Human Lispro (Humalog) 0 unit SQ ACHS [facility]; Protocol Last Admin: 05/20/20 07:23 Dose: Not Given Documented by: Iron Carb/Multivit/[place]/Folic Acid (Multivitamin W/Minerals) 1 tab PO DAILY [facility] Last Admin: 05/19/20 10:15 Dose: 1 tab Documented by: Lactulose (Cephulac) 10 gm PO DAILYP PRN PRN Reason: Constipation Levothyroxine Sodium (Synthroid) 88 mcg PO QAMAC [facility] Last Admin: 05/20/20 07:22 Dose: 88 mcg Documented by: Magnesium Oxide (Magnesium Oxide) 400 mg PO DAILY [facility] Last Admin: 05/19/20 10:16 Dose: 400 mg Documented by: Melatonin (Melatonin 3mg Tablet) 3 mg PO HSP PRN PRN Reason: Insomnia Mirtazapine (Remeron) 15 mg PO QHS [facility] Last Admin: 05/19/20 20:26 Dose: 15 mg Documented by: Omeprazole (Prilosec) 20 mg PO DAILYP PRN PRN Reason: gi Ondansetron HCl (Zofran Odt) 4 mg SL Q4-6HP PRN; Protocol PRN Reason: Nausea And Vomiting Ondansetron HCl (Zofran) 4 mg IV Q4HP PRN; Protocol PRN Reason: Nausea And Vomiting Oxycodone HCl (Roxicodone) 15 mg PO Q6HP PRN PRN Reason: Pain Last Admin: 05/20/20 05:26 Dose: 15 mg Documented by: Pregabalin (Lyrica) 150 mg PO BID [facility] Last Admin: 05/19/20 20:26 Dose: 150 mg Documented by: Senna (Senokot) 2 tab PO HSP PRN PRN Reason: Constipation Sitagliptin Phosphate (Januvia) 50 mg PO DAILY [facility] Last Admin: 05/19/20 10:15 Dose: 50 mg Documented by: Sodium Chloride (Saline Flush) 10 ml IV Q8 [facility] Last Admin: 05/20/20 05:20 Dose: 10 ml Documented by: Tamsulosin HCl (Flomax) 0.4 mg PO QHS [facility] Last Admin: 05/19/20 20:25 Dose: 0.4 mg Documented by: Thiamine HCl (Vitamin B1) 100 mg PO DAILY [facility] Last Admin: 05/19/20 10:15 Dose: 100 mg Documented by: A/P Assessment and plan (1) Acute renal failure: Status: Acute Comment: Acute renal failure Qualifiers: Acute renal failure type: unspecified Qualified Code(s): N17.9 - Acute kidney failure, unspecified Narrative A/P Narrative: A: *MACK on CKD II: 2/2 volume depletion from diuresis/diarrhea. -improved *Hepatic encephalopathy: Started rifaximin in place of lactulose -improved *Ascites, mild: 2/2 cirrhosis *Severe diarrhea likely noninfectious, Secondary to lactulose. *Hyperkalemia: Status post Kayexalate and hyperkalemia protocol. Resoved *generalized Weakness/Deconditioning *Hypothyroidism: continue thyroxine *DM type II: *BPH: continue tamsulosin/finasteride *HTN: *Anticoagulation for h/o embolic CVA: on apixaban *Chronic pain: on oxycodone *Hyperlipidemia: continue statin *Neuropathy: continue Lyrica *OZZIE: *Obesity: home cpap Plan: -d/c IVF's -Started rifaximin, lactulose initially held -Diuretics on hold due to MACK -cont amlodipine/clonidine, hold benazepril/aldactone/lasix in light of MACK and hyperkalemia -SSI and sitagliptin -PT OT nutrition support -CM for placement to SNF on likely Thursday -ppx: apixaban full code Time Spent With Patient Time: Total time spent is greater than 50% in coordination of care (as documented) at patient's floor/unit and/or counseling patient: QUALITY VTE Deep Vein Thrombosis/Pulmonary Embolism Present on Admission: No
[2020-05-20] MEDS: sitaGLIPtin 50 MG TABLET PO SCH (08:41)
[2020-05-20] MEDS: RIFAXIMIN 550 MG TABLET PO SCH ×2 (08:41→20:55)
[2020-05-20] MEDS: APIXABAN 5 MG TABLET PO SCH ×2 (08:41→20:52)
[2020-05-20] MEDS: FINASTERIDE 5 MG TABLET PO SCH (08:41)
[2020-05-20] MEDS: cloNIDine HCL 0.1 MG TABLET PO SCH ×2 (08:42→20:51)
[2020-05-20] MEDS: MULTIVIT,THER IRON,CA,FA & MIN 1 TABLET PO SCH (08:42)
[2020-05-20] MEDS: MAGNESIUM OXIDE 400 MG TABLET PO SCH (08:42)
[2020-05-20] MEDS: THIAMINE 100 MG TABLET PO SCH (08:42)
[2020-05-20] MEDS: PREGABALIN 150 MG CAPSULE PO SCH ×2 (08:42→20:54)
[2020-05-20] MEDS: amLODIPine 5 MG TABLET PO SCH (08:42)
[2020-05-20] MEDS: CYANOCOBALAMIN (VITAMIN B-12) 500 MCG TABLET PO SCH ×2 (08:42→20:55)
[2020-05-20] MEDS: DOCUSATE SODIUM 100 MG CAPSULE PO SCH (08:43)
--- NOTE | 2020-05-20 10:12 | Discharge Summary ---
Discharge Provider Provider Patient information: Note initiated : 05/20/20 at 10:09 am Service Date, if different from initiated Date: [] Patient: Siddharth Painter 74 y/o M admitted on 05/18/20 for weakness. Chief Complaint: [] Date of admission: 05/18/20 03:45 Discharge date: 05/21/20 Primary care physician: Veronica Middleton PA-C Consults: 05/18/20 03:07 Consult to Physician [CONS] Routine Comment: Consulting Provider: Meek Gongora Reason For Exam: Physician to Consult Discharge Meds Discharge Medications Active and Home Medications: Home Medications clonidine HCl 0.1 mg PO BID 03/08/19 [History Confirmed 05/18/20 Last Taken 03/13/19 21:00] magnesium oxide 400 mg PO DAILY 03/08/19 [History Confirmed 05/18/20 Last Taken 03/12/19 21:00] omega-3 fatty acids-fish oil 1,000 mg PO DAILY 03/08/19 [History Confirmed 05/18/20 Last Taken 03/06/19 21:00] saw palmetto 160 mg PO BID 03/08/19 [History Confirmed 05/18/20 Last Taken 03/13/19 21:00] vitamin B complex 1 cap PO DAILY 03/08/19 [History Confirmed 05/18/20 Last Taken 03/13/19 10:00] levothyroxine 88 mcg PO QAMAC 03/15/19 [History Confirmed 05/18/20 Last Taken 03/13/19] lidocaine 5 % topical patch 3 patch TOPICAL QDAY each 07/25/19 [History Confirmed 05/18/20 Last Taken Unknown] testosterone cypionate 200 mg/mL intramuscular oil 100 mg IM Q14D ml 07/25/19 [History Confirmed 05/18/20 Last Taken Unknown] mirtazapine 15 mg tablet 15 mg PO QHS 01/27/20 [History Confirmed 05/18/20 Last Taken Unknown] pregabalin 150 mg capsule 150 mg PO BID 01/27/20 [History Confirmed 05/18/20 Last Taken Unknown] rosuvastatin 10 mg tablet 10 mg PO QDAY 01/27/20 [History Confirmed 05/18/20 Last Taken Unknown] tamsulosin 0.4 mg capsule 0.4 mg PO QHS #90 cap 04/16/20 [Rx Confirmed 05/18/20 Last Taken Unknown] finasteride 5 mg tablet 5 mg PO QDAY #30 tab 04/19/20 [Rx Confirmed 05/18/20 Last Taken Unknown] apixaban 5 mg tablet 5 mg PO BID 05/02/20 [History Confirmed 05/18/20 Last Taken Unknown] amlodipine 5 mg-benazepril 40 mg capsule 1 cap PO QDAY 05/04/20 [History Confirmed 05/18/20 Last Taken Unknown] docusate sodium 100 mg capsule 100 mg PO QDAY 05/04/20 [History Confirmed 05/18/20 Last Taken Unknown] furosemide 40 mg tablet 40 mg PO QDAY 05/04/20 [History Confirmed 05/18/20 Last Taken Unknown] metformin 500 mg tablet,extended release 24 hr 500 mg PO BID tab 05/04/20 [History Confirmed 05/18/20 Last Taken Unknown] omeprazole 20 mg capsule,delayed release 20 mg PO QDAY PRN 05/04/20 [History Confirmed 05/18/20 Last Taken Unknown] oxycodone 15 mg tablet 15 mg PO Q6H PRN tab 05/04/20 [History Confirmed 05/18/20 Last Taken Unknown] spironolactone 100 mg tablet 100 mg PO QDAY 05/04/20 [History Confirmed 05/18/20 Last Taken Unknown] Lactulose 10 mg PO DAILY 05/18/20 [History Confirmed 05/18/20 Last Taken Unknown] COURSE Hospital Course Hospital Course: Mr. Painter is a 74 year old morbidly obese M with no history of embolic CVA, morbid obesity with OZZIE, DM type II,HTN, BPH and recent diagnosis of liver cirrhosis with hepatic encephalopathy. He was seen on Thursday at GI clinic with fatigue and confusion and 17 pound weight loss after he was initiated on furosemide 40 and spironolactone 100 a couple of weeks ago for ascites. Due to elevation in creatinine to 1.5 the dose was cut into half and subsequently discontinued on Thursday, May 16. Patient was started on lactulose on May 17. Shortly after initiation of lactulose he has had multiple episodes of liquid stools presents to the ER with weakness and dehydration. Patient work-up was consistent with acute renal failure. Potassium 5.7. Patient was started on hyperkalemia protocol. Ammonia over 100. Patient received crystalloids And was started on hyperkalemia protocol Hospitalist service was consulted for admission At the time of evaluation patient is encephalopathic confused drowsy and lethargic. He continues to have persistent stooling and is incontinent. Endorses to minimal abdominal discomfort but denies fever, chills. His symptoms has been ongoing for over 24 hours. He was able to participate in review of systems and denies chest pain, shortness of breath headache or photophobia. Other than lactulose he denies major change in medications recently. 05/19 No overnight events or new complaints. Patient feeling better. Renal function improved. 05/20 Patient sitting up in chair eating breakfast. Feeling better today. Renal function continues to improve. He states his appetite is starting to improve. No new pains or complaints. 05/21 Continues to feel better and doing well. No new complaints. Stable for discharge. A/P Narrative: A: *MACK on CKD II: 2/2 volume depletion from diuresis/diarrhea. -improved *Hepatic encephalopathy: Started rifaximin in place of lactulose -improved *Ascites, mild: 2/2 cirrhosis *Severe diarrhea likely noninfectious, Secondary to lactulose. *Hyperkalemia: Status post Kayexalate and hyperkalemia protocol. Resoved *generalized Weakness/Deconditioning *Hypothyroidism: continue thyroxine *DM type II: *BPH: continue tamsulosin/finasteride *HTN: *Anticoagulation for h/o embolic CVA: on apixaban *Chronic pain: on oxycodone *Hyperlipidemia: continue statin *Neuropathy: continue Lyrica *OZZIE: *Obesity: home cpap Discharge diagnosis: Acute kidney injury hepatic encephalopathy volume depletion generalized wea Secondary discharge diagnosis: Cirrhosis hypothyroidism diabetes obesity obstructive sleep apnea hypertension neuropathy Time Spent with Patient Time attestation: Total time spent providing and/or coordinating discharge services: Time spent: Greater than 30 minutes EXAM Constitutional Vitals: Temp Pulse Resp BP Pulse Ox 98.2 F 59 L 17 136/60 94 05/20/20 00:01 05/20/20 08:01 05/20/20 09:00 05/20/20 08:01 05/20/20 08:01 Discharge Data Data Completed and Pending Labs on day of discharge: Labs from last 24 hours 05/20/20 05/19/20 04:46 10:04 Sodium 136 Potassium 4.4 Chloride 107 Carbon Dioxide 21 L Anion Gap 8.0 BUN 25 H Creatinine 0.9 GFR Calculation 84 Glucose 94 Calcium 8.4 L Ammonia 84 H Discharge Plan Patient/Caregiver Discharge Instructions Activity: increase activity as tolerated Diet: Cardiac Activity Restrictions/Additional Instructions: f/u with PCP 3-7 days Prescriptions: Continued amlodipine-benazepril 5-40 mg capsule 1 cap PO QDAY RF: 0 Changed furosemide 40 mg tablet 20 mg PO QDAY Qty: 1 RF: 0 spironolactone 100 mg tablet 25 mg PO QDAY Qty: 1 RF: 0 No Action tamsulosin 0.4 mg capsule 0.4 mg PO QHS Qty: 90 RF: 11 finasteride 5 mg tablet 5 mg PO QDAY Qty: 30 RF: 11 docusate sodium [Dulcolax Stool Softener (dss)] 100 mg capsule 100 mg PO QDAY RF: 0 oxycodone 15 mg tablet 15 mg tablet 15 mg PO Q6H PRN (Reason: Pain) RF: 0 rosuvastatin 10 mg tablet 10 mg PO QDAY RF: 0 pregabalin [Lyrica] 150 mg capsule 150 mg PO BID RF: 0 mirtazapine 15 mg tablet 15 mg PO QHS RF: 0 Eliquis 5 mg tablet 5 mg PO BID RF: 0 omeprazole 20 mg capsule,delayed release(DR/EC) 20 mg PO QDAY PRN (Reason: gi) RF: 0 lidocaine [Lidoderm] 5 % adhesive patch,medicated 3 patch TOPICAL QDAY RF: 0 clonidine HCl 0.1 MG tablet 0.1 mg PO BID RF: 0 magnesium oxide 400 MG tablet 400 mg PO DAILY RF: 0 saw palmetto 160 MG capsule 160 mg PO BID RF: 0 vitamin B complex 1 CAP capsule 1 cap PO DAILY RF: 0 omega-3 fatty acids-fish oil 1,000 MG capsule 1,000 mg PO DAILY RF: 0 levothyroxine 88 MCG tablet 88 mcg PO QAMAC RF: 0 testosterone cypionate 200 mg/mL oil 100 mg IM Q14D RF: 0 metformin 500 mg tablet extended release 24 hr 500 mg PO BID RF: 0 Lactulose 10 mg PO DAILY RF: 0 Other Ambulatory Orders: Basic Metabolic Panel (Routine) Timeframe: 1 Week Location: None Selected Ordered By: Carl Cordova Follow Up Plan Follow up with: Veronica Middleton PA-C [Primary Care Provider] - Tania Glover ARNP [Nurse Practitioner] - Patient Disposition: Xfer SNF Rehab Potential: Fair I certify that the patient requires SNF services: Yes Overall status at discharge: patient is progressing back to baseline Discharge Orders: Discharge Order (Routine); Ordered 05/21/20 Ordered By: Carl Cordova [facility] VTE Deep Vein Thrombosis/Pulmonary Embolism Present on Admission: No
[2020-05-20] MEDS ORDERED: ONDANSETRON 4 MG ODT TABLET SL PRN (12:26)
[2020-05-20] MEDS ORDERED: SENNOSIDES 1 TABLET PO PRN (12:26)
[2020-05-20] MEDS ORDERED: LACTULOSE 20 GM/30 ML ORAL.SOL PO PRN (12:26)
[2020-05-20] MEDS ORDERED: ACETAMINOPHEN 325 MG TABLET PO PRN (12:26)
[2020-05-20] MEDS ORDERED: ONDANSETRON 4 MG/2 ML VIAL IV PRN (12:26)
[2020-05-20] MEDS ORDERED: HYDROmorphone 0.5 MG/0.5 ML SYRINGE IV PRN (12:26)
[2020-05-20] MEDS ORDERED: OMEPRAZOLE 20 MG CAPSULE PO PRN (12:26)
[2020-05-20] MEDS: TAMSULOSIN 0.4 MG CAPSULE PO SCH (20:52)
[2020-05-20] MEDS: ATORVASTATIN 20 MG TABLET PO SCH (20:53)
[2020-05-20] MEDS: MIRTAZAPINE 15 MG TABLET PO SCH (20:54)
[2020-05-20] MEDS ORDERED: MELATONIN 3 MG TABLET PO PRN (21:00)
[2020-05-21] MEDS: oxyCODONE HCL 5 MG TABLET PO PRN ×3 (04:53→20:20)
[2020-05-21] MEDS: 0.9 % SODIUM CHLORIDE 10 ML SYRINGE IV SCH ×3 (04:54→20:21)
[2020-05-21] MEDS: INSULIN LISPRO 1 UNIT/0.01 ML UNIT SQ SCH ×4 (08:08→20:51)
[2020-05-21] MEDS: sitaGLIPtin 50 MG TABLET PO SCH (08:09)
[2020-05-21] MEDS: RIFAXIMIN 550 MG TABLET PO SCH ×2 (08:09→20:20)
[2020-05-21] MEDS: CYANOCOBALAMIN (VITAMIN B-12) 500 MCG TABLET PO SCH ×2 (08:09→20:19)
[2020-05-21] MEDS: THIAMINE 100 MG TABLET PO SCH (08:10)
[2020-05-21] MEDS: MULTIVIT,THER IRON,CA,FA & MIN 1 TABLET PO SCH (08:10)
[2020-05-21] MEDS: APIXABAN 5 MG TABLET PO SCH ×2 (08:10→20:19)
[2020-05-21] MEDS: LEVOTHYROXINE 88 MCG TABLET PO SCH (08:11)
[2020-05-21] MEDS: FINASTERIDE 5 MG TABLET PO SCH (08:12)
[2020-05-21] MEDS: amLODIPine 5 MG TABLET PO SCH (08:12)
[2020-05-21] MEDS: cloNIDine HCL 0.1 MG TABLET PO SCH ×2 (08:12→20:19)
[2020-05-21] MEDS: DOCUSATE SODIUM 100 MG CAPSULE PO SCH (08:13)
[2020-05-21] MEDS: PREGABALIN 150 MG CAPSULE PO SCH ×2 (08:13→20:20)
[2020-05-21] MEDS ORDERED: MAGNESIUM OXIDE 400 MG TABLET PO SCH (09:00)
[2020-05-21] MEDS: TAMSULOSIN 0.4 MG CAPSULE PO SCH (20:19)
[2020-05-21] MEDS: ATORVASTATIN 20 MG TABLET PO SCH (20:19)
[2020-05-21] MEDS: MIRTAZAPINE 15 MG TABLET PO SCH (20:20)
[2020-05-22] MEDS: oxyCODONE HCL 5 MG TABLET PO PRN ×2 (02:15→08:08)
[2020-05-22] MEDS: 0.9 % SODIUM CHLORIDE 10 ML SYRINGE IV SCH (04:05)
[2020-05-22] MEDS: LEVOTHYROXINE 88 MCG TABLET PO SCH (07:01)
[2020-05-22] MEDS: INSULIN LISPRO 1 UNIT/0.01 ML UNIT SQ SCH ×2 (07:06→11:01)
[2020-05-22] MEDS: CYANOCOBALAMIN (VITAMIN B-12) 500 MCG TABLET PO SCH (08:07)
[2020-05-22] MEDS: MULTIVIT,THER IRON,CA,FA & MIN 1 TABLET PO SCH (08:07)
[2020-05-22] MEDS: cloNIDine HCL 0.1 MG TABLET PO SCH (08:07)
[2020-05-22] MEDS: amLODIPine 5 MG TABLET PO SCH (08:07)
[2020-05-22] MEDS: sitaGLIPtin 50 MG TABLET PO SCH (08:07)
[2020-05-22] MEDS: PREGABALIN 150 MG CAPSULE PO SCH (08:07)
[2020-05-22] MEDS: DOCUSATE SODIUM 100 MG CAPSULE PO SCH (08:08)
[2020-05-22] MEDS: THIAMINE 100 MG TABLET PO SCH (08:08)
[2020-05-22] MEDS: RIFAXIMIN 550 MG TABLET PO SCH (08:08)
[2020-05-22] MEDS: FINASTERIDE 5 MG TABLET PO SCH (08:08)
[2020-05-22] MEDS: APIXABAN 5 MG TABLET PO SCH (08:08)
[2020-05-23 07:40] LABS: Norovirus Ag Stool-SO NOT DETECTED
== END 2020-05-22 12:50 | disposition home health service (06) | DRG 683 ==
LOC: ED 00:07 → ICU 00:07 → OBSVTOIN 03:45 → ICU 05-20 14:17
PROVIDERS: ADMIT Internal Medicine; ATTEND Internal Medicine